=== PATIENT | female | born 1960 | race Caucasian/White ===

== ENCOUNTER 2020-08-20 09:09 | Inpatient (IN) | payer MEDICARE, OTHER ==
[~2020-08-20] VITALS: Ht 162.6 cm; Wt 104.3 kg
[~2020-08-20 09:09] MED LIST: ALPR2TAB7 PO; ASPI-1420 PO; ATEN25TA PO; ATOR20TA PO; DILT-32 PO; ESCI10TA PO; LEVO75TA7 PO; LOPE2TAB25 PO; MONT10TA22 PO; MULT-594 PO; PANT40TA49 PO; PREG75CA PO; RISP2TAB85 PO; TEMA30CA PO; TIOT18CA3 IH; TOPI25TA49 PO; VALA100026 PO
--- NOTE | 2020-08-20 09:22 | NUR ---
AMISHJacinto [id number] From [facility] Escorted by [employer] Officer Hector [id number] Self inflicted wrist laceration/SI/agitation, states "I'm scared, I feel like I'm going to hell". to ER bed 10, hooked to monitor, noted , changed to hosp gown, warm blanket provided, patient aao X 3. awaiting MD shoemaker
--- NOTE | 2020-08-20 09:23 | NUR ---
Dr Keane at bedside
[2020-08-20] MEDS ORDERED: OLANZAPINE 10 MG VIAL IM ONE ×2 (09:30→09:34)
[2020-08-20 09:56] LABS: BASOPHILS # (AUTO) 0.1 /CMM (0.0-0.2); BASOPHILS % (AUTO) 0.5 % (0.0-2.0); EOSINOPHILS % (AUTO) 1.2 % (0.0-6.0); HEMATOCRIT 40 % (33-45); HEMOGLOBIN 13.1 g/dL (11.5-14.8); LYMPHOCYTES # (AUTO) 1.3 /CMM (0.8-4.8); LYMPHOCYTES % (AUTO) 11.9 % (20.0-44.0); MEAN CORPUSCULAR HGB CONC 33 g/dl (31.0-36.0); MEAN CORPUSCULAR VOLUME 84 fL (82-100); MONOCYTES # (AUTO) 0.5 /CMM (0.1-1.30); MONOCYTES % (AUTO) 5.2 % (2.0-12.0); NEUTROPHILS # (AUTO) 8.5 /CMM (1.8-8.9); NEUTROPHILS % (AUTO) 81.2 % (43.0-81.0); PLATELET COUNT (AUTO) 345 /CMM (150-450); RED BLOOD CELL COUNT(AUTO) 4.72 MIL/uL (4.0-5.2); WHITE BLOOD COUNT (AUTO) 10.5 K/uL (4.3-11.0)
[2020-08-20 10:10] LABS: CALCIUM, SERUM 9.5 mg/dL (8.5-10.1); CARBON DIOXIDE 24 mmol/L (21-32); CHLORIDE 106 mmol/L (98-107); CREATININE 1.4 mg/dL (0.6-1.3); GLUCOSE 186 mg/dL (74-106); SODIUM SERUM 143 mmol/L (136-145); UREA NITROGEN, BLOOD 13 mg/dL (7-18)
[2020-08-20 10:20] LABS: ACETAMINOPHEN 0 ug/ml (10-30); ALANINE AMINOTRANSFERASE 42 U/L (12-78); ALBUMIN 3.6 g/dL (3.4-5.0); ALCOHOL, BLOOD < 3 mg/dL (0-0); ALKALINE PHOSPHATASE 123 U/L (46-116); ASPARTATE AMINOTRANSFERASE 18 U/L (15-37); BILIRUBIN,DIRECT 0.1 mg/dL (0.0-0.2); BILIRUBIN,TOTAL 0.3 mg/dL (0.2-1.0); TOTAL PROTEIN, SERUM 7.6 g/dL (6.4-8.2)
--- NOTE | 2020-08-20 10:37 | NUR ---
urine sample collected via straight catheter, sent sample to lab
--- NOTE | 2020-08-20 10:43 | NUR ---
CALLED ART MORTGAGE LOAN COORDINATOR FOR PSYCH EVAL.
[2020-08-20] MEDS ORDERED: METO25TA3 PO (10:48)
[2020-08-20] MEDS ORDERED: METF-440 PO (10:48)
[2020-08-20] MEDS ORDERED: IBUP-1955 PO (10:48)
[2020-08-20] MEDS ORDERED: ACET1TAB23 PO (10:48)
[2020-08-20] MEDS ORDERED: RISP0.2515 PO (10:48)
[2020-08-20] MEDS ORDERED: DOXE25CA3 PO (10:48)
[2020-08-20] MEDS ORDERED: FLUT16SP (10:48)
[2020-08-20] MEDS ORDERED: QUET200T PO (10:48)
[2020-08-20] MEDS ORDERED: GABA-532 PO (10:48)
[2020-08-20] MEDS ORDERED: BENZ2TAB7 PO (10:48)
[2020-08-20] MEDS ORDERED: DIPH1TAB PO (10:48)
[2020-08-20 10:54] LABS: BILIRUBIN,URINE Negative (NEGATIVE); COLOR,URINE YELLOW (YELLOW); LEUKOCYTE ESTERASE ,URINE Negative (NEGATIVE); NITRITE, URINE Negative (NEGATIVE); PROTEIN,URINE Negative (NEGATIVE); UGLUCOSE Negative (NEGATIVE); UROBILINOGEN,URINE 0.2 EU/dL (0.2)
--- NOTE | 2020-08-20 11:00 | NUR ---
RECEIVED RESULT FROM MAIN LAB: RAPID COVID NEGATIVE
[2020-08-20] MEDS ORDERED: LORAZEPAM INJ 2 MG/ML VIAL ONE (11:15)
[2020-08-20] MEDS ORDERED: LORAZEPAM INJ 2 MG/ML VIAL IV ONE (11:30)
[2020-08-20] MEDS ORDERED: IV NS 0.9% 1,000 ML BAG IV ONE (11:30)
--- NOTE | 2020-08-20 11:50 | NUR ---
Social Service Consult: SW consult request by ER staff for a 60 year old female. SW met with pt at ER bed 10 at 1120 am to do an assessment. Per RN (Elijah) pt is medicated by MD Garcia) and she is interviewable Pt is alert and oriented x 4 ( time, place, self, and situation). Pt appears to be in an anxious mood and distress affect. Pt.'s speech is within normal limits. Pt is seeking help because she is having suicidal ideation. Pt expresses of having a plan to drink a bottle of Benadryl to overdose. Pt states when she has anxiety she also feels like jumping out of a building window. The trigger for the pt is because the pt's two friends are currently not on speaking terms. Pt denies having homicidal ideation. Pt. is ungroomed and has proper attire (medical gown). Pt has hx of psychiatric hospitalization and psychotropic medication. Pt did not explain further with hospitalization or current medications. Pt states she currently stays at [facility] ([address] [place] [address], ) before ED admission. Pt also state she does have a support system, mother (Margoth Hodges [phone]). Pt ambulates with steady gait and has no DME. Pt express she is currently unemployed but receives disability benefits month. She did specify the amount she receives for assistance. SW offers pt for psychiatric hospitalization. Pt verbally agrees to voluntarily be in psychiatric unit. Plan: Crisis team will be evaluating the pt for psychiatric hospitalization at [facility]).
--- NOTE | 2020-08-20 12:47 | NUR ---
[facility] 213-1
--- NOTE | 2020-08-20 12:52 | NUR ---
REPORT GIVEN TO MANISH ABRAHAM OF [facility]
--- NOTE | 2020-08-20 13:20 | NUR ---
TOOL MAKER BENCH NOTE- 60 Y/O FEMALE BROUGHT INTO UNIT FROM ER. ON FACE TO FACE ASSESSMENT, PT IS ALERT ORIENTED TO PERSON PLACE TIME PURPOSE. A BIT PARANOID, FLAT AFFECT, DEPRESSED POOR EYE CONTACT MINIMAL INTERACTION NOTED. PT STATES "I CUT MY WRIST" PT DENIES SI HI AH VH AT PRESENT. STATED "IM DONE WITH THAT" SHE IS 64 INCHES TALL AND 230 POUNDS. PT HAS MEDICAL HX OF HYPERTENSION, GERD, HYPOTHYROIDISM, ASTHMA COPD, BIPOLAR AND DEPRESSION. SHES ALLERGIC TO LAMICTAL AND BETADINE, PLASTIC TAPE WELL. PT MRSA SWAB COMPLETED, ACCU CHECK BS- 158. VS- B/P- 115/66, HR- 88, RR- 20, TEMP- 98.4, SATS 93% RA . PT REFUSES PNEUMONIA AND FLU VACCINES "DUE TO MY BREATHING ISSUES (COPD/ASTHMA). PT WAS COMBATIVE IN ER AND WAS PLACED IN RESTRAINTS AND GIVEN ZYPREXA 5 MG IM. PT CALM DIRECTABLE HERE. LT WRIST W 19CM LONG ABRASION FROM RAZOR SCRAPE. NO DRAINAGE AT PRESENT. PHOTOS TAKEN AND REDRESSED. LLE W ABRASION 0.5 X 2.O CM ND RLE ABRASION 7 X 1.5 CM . PHOTOS TAKEN FOR CHART. DR CORTEZ NOTIFIED AND ORDERS RECEIVED. CYDNEY MELVIN NOTIFIED OF ADMIT WELL. PT RIGHTS PAMPHLET AND UNIT ORIENTATION COMPLETED Addendum: 08/20/20 at 1453 by MANISH AGUDELO RN PT SPOKE TO THIS RN AND STATED THAT SHE WAS THINKING SHE HAS HAD FLU VACC "THIS PAST YEAR" AND PNA VACC "SOME TIME AGO..." BUT ALSO STATED SHES NEVER BEEN TREATED FOR COPD ISSUES OR ASTHMA
[2020-08-20] MEDS ORDERED: MAGNESIUM HYDROXIDE 30 ML UDC PO PRN (13:30)
[2020-08-20] MEDS ORDERED: MAG HYDROX/AL HYDROX/SIMETH 30 ML UDC PO PRN (13:30)
[2020-08-20] MEDS ORDERED: BLOOD SUGAR DIAGNOSTIC 1 EACH STRIP IN ONE (13:30)
[2020-08-20] MEDS: METOPROLOL SUCCINATE 25 MG TAB.SR.24H PO SCH ×2 (14:56→20:00)
[2020-08-20] MEDS: LEVOTHYROXINE SODIUM 75 MCG TABLET PO SCH (14:56)
[2020-08-20 16:03] VITALS: BP 112/86
[2020-08-20] MEDS: LORAZEPAM 0.5 MG TABLET PO PRN (16:37)
--- NOTE | 2020-08-20 16:37 | NUR ---
RN NOTE- PT W ANXIETY . ATIVAN 0.5 MG GIVEN
[2020-08-20] MEDS: METFORMIN 500 MG TABLET PO SCH (17:04)
[2020-08-20] MEDS: FLUTICASONE PROPIONATE 16 GM BOTTLE NS SCH (17:04)
--- NOTE | 2020-08-20 19:30 | NUR ---
[facility] RN NOTE, RECEIVED PATIENT AWAKE AND IN ROOM, NO S/S OR COMPLAINTS OF PAIN AT THIS TIME. PATIENT IS DISPLAYING NO S/S OF APPARENT DISTRESS AT THIS TIME. PATIENT BREATHING IS UNLABORED WITH EQUAL RISE AND FALL OF THE CHEST. PATIENT IS ALERT AND ORIENTED X 2-3 ON ROOM AIR WITH A SPO2 96%. PATIENT IS COMPLIANT WITH MEDICATIONS, HYPERVERBAL AT TIMES, ANXIOUS, DEMANDING, NEEDS LOTS OF REDIRECTION, AND COOPERATIVE. PATIENT DENIES SUICIDAL AND HOMICIDAL IDEATIONS AT THIS TIME. PATIENT ASSISTED WITH TURNING AND REPOSITIONING Q2HR AND PRN FOR COMFORT AND CIRCULATION. PATIENT HAS NO NEEDS AT THIS TIME. PATIENT EDUCATED ON THE USE OF THE CALL NAVA. WILL CONTINUE TO MONITOR THIS PATIENT Q15 MINUTES WITH THE HELP OF STAFF TO MAINTAIN SAFETY.
[2020-08-20 19:44] VITALS: BP 120/84
[2020-08-20] MEDS: ATORVASTATIN 10 MG TABLET PO SCH (21:22)
[2020-08-20] MEDS: TEMAZEPAM 7.5 MG CAPSULE PO PRN (21:22)
--- NOTE | 2020-08-20 21:22 | NUR ---
[facility] RN NOTE, PATIENT HAS A COMPLAINT OF NOT BEING ABLE TO SLEEP AND IS REQUESTING RESTORIL AT THIS TIME. PATIENT VITAL SIGNS ARE STABLE. GAVE RESTORIL 7.5MG PO HS PRN ORDERED. WILL REASSESS FOR INSOMNIA AND I WILL CONTINUE TO MONITOR THIS PATIENT.
[2020-08-21] MEDS: ACETAMINOPHEN 325 MG TABLET PO PRN (05:17)
[2020-08-21] MEDS: LEVOTHYROXINE SODIUM 75 MCG TABLET PO SCH (07:59)
[2020-08-21] MEDS: PANTOPRAZOLE 40 MG TABLET.DR PO SCH (07:59)
[2020-08-21 08:00] VITALS: BP 123/75
[2020-08-21 08:07] LABS: CHOLESTEROL 163 mg/dL (<200); HDL CHOLESTEROL 41 mg/dL (40-60); LDL 108 mg/dL (0-99); TRIGLYCERIDES 146 mg/dL (30-150)
[2020-08-21] MEDS: METFORMIN 500 MG TABLET PO SCH ×2 (08:59→16:41)
[2020-08-21] MEDS: FLUTICASONE PROPIONATE 16 GM BOTTLE NS SCH ×2 (08:59→16:41)
[2020-08-21] MEDS: METOPROLOL SUCCINATE 25 MG TAB.SR.24H PO SCH ×2 (08:59→16:42)
--- NOTE | 2020-08-21 09:00 | NUR ---
RN NOTE- PT ALERT ORIENTED VISIBLE ON UNIT DENIES SI HI AH VH DEPRESSED FLAT AFFECT MED COMPLIANT
[2020-08-21 12:23] LABS: ALBUMIN 3.5 g/dL (3.4-5.0); BILIRUBIN,TOTAL 0.3 mg/dL (0.2-1.0); CALCIUM, SERUM 9.1 mg/dL (8.5-10.1); CREATININE 1.3 mg/dL (0.6-1.3); POTASSIUM 4.2 mmol/L (3.5-5.1); TOTAL PROTEIN, SERUM 7.3 g/dL (6.4-8.2)
[2020-08-21] MEDS: LORAZEPAM 0.5 MG TABLET PO PRN (12:30)
--- NOTE | 2020-08-21 12:30 | NUR ---
RN NOTE- C/O ANXIETY. ATIVAN 0.5 MG GIVEN
--- NOTE | 2020-08-21 13:50 | NUR ---
RN NOTE- PT ANXIETY DIMINISHED. ATIVAN EFFECTIVE
[2020-08-21 16:00] VITALS: BP 101/68
[2020-08-21] MEDS ORDERED: risperiDONE 1 MG TABLET PO PRN (17:30)
[2020-08-21] MEDS: risperiDONE 1 MG TABLET PO SCH (18:31)
[2020-08-21 20:49] VITALS: BP 155/96
[2020-08-21] MEDS: ATORVASTATIN 10 MG TABLET PO SCH (21:08)
[2020-08-21] MEDS: TEMAZEPAM 7.5 MG CAPSULE PO PRN (21:08)
[2020-08-22] MEDS: LORAZEPAM 0.5 MG TABLET PO PRN ×4 (00:58→15:05)
--- NOTE | 2020-08-22 00:58 | NUR ---
[facility] NOTE, PATIENT HAS A A COMPLAINT OF FEELING ANXIOUS AND IS REQUESTING ATIVAN AT TIME. PATIENT VITAL SIGNS ARE STABLE. GAVE ATIVAN 0.5MG PO Q6HR PRN ORDERED. WILL REASSESS ANXIETY AND I WILL CONTINUE TO MONITOR THIS PATIENT.
[2020-08-22] MEDS: ACETAMINOPHEN 325 MG TABLET PO PRN (06:26)
[2020-08-22] MEDS: LEVOTHYROXINE SODIUM 75 MCG TABLET PO SCH (07:51)
[2020-08-22] MEDS: PANTOPRAZOLE 40 MG TABLET.DR PO SCH (07:51)
--- NOTE | 2020-08-22 07:52 | NUR ---
RN-CO: ATIVAN MG PO GIVEN FOR SEVERE ANXIETY.
[2020-08-22 08:00] VITALS: BP 141/75
[2020-08-22] MEDS: METOPROLOL SUCCINATE 25 MG TAB.SR.24H PO SCH ×2 (08:01→16:43)
[2020-08-22] MEDS: risperiDONE 1 MG TABLET PO SCH ×2 (08:01→16:14)
[2020-08-22] MEDS: METFORMIN 500 MG TABLET PO SCH ×2 (08:02→16:14)
[2020-08-22] MEDS: FLUTICASONE PROPIONATE 16 GM BOTTLE NS SCH ×2 (08:05→16:14)
--- NOTE | 2020-08-22 09:25 | NUR ---
RN-CO: ATIVAN PO IS INEFFECTIVE. PATIENT WAS RUNNING AROUND, CRYING , SCREAMING, NON REDIRECTABLE. WE TRIED TO SIT HER IN MOOKIE CHAIR BUT STILL EXTREMELY RESTLESS AND ANXIOUS. CALLED DR CORTEZ. PT IS SCREAMING " MY DREAM WAS BAD!" " GIVE ME A SHOT!" "I CANNOT CALM DOWN!"
--- NOTE | 2020-08-22 09:51 | NUR ---
RN-CO: DR CORTEZ INCREASED THE ZYPREXA TO 10 MG IM .
[2020-08-22] MEDS ORDERED: OLANZAPINE 10 MG VIAL IM ONE ×2 (10:00)
--- NOTE | 2020-08-22 10:04 | NUR ---
RN-CO: DR CORTEZ SEEN AND EXAMINED PATIENT WITH ORDER TO GIVEN ZYPREXA 10 MG IM X1 PER PATIENT REQUEST. NOTED AND CARRIED OUT. PATIENT STATED GIVEN ME A SHOT " I AM SCARED I WILL HIT SOMEBODY."
--- NOTE | 2020-08-22 15:03 | NUR ---
rn-co: ativan 0.5 mgg 1 tab ,pt dropped it on the floor and was wasted by another RN. Ativan 0.5 mg PO pulled out again was given to pt due to anxiety.
[2020-08-22 16:00] VITALS: BP 134/90
[2020-08-22] MEDS ORDERED: HALOPERIDOL LACTATE INJ 5 MG/ML VIAL IM STA (17:03)
[2020-08-22] MEDS ORDERED: LORAZEPAM INJ 2 MG/ML VIAL IM STA (17:03)
--- NOTE | 2020-08-22 17:04 | NUR ---
RN-CO: PATIENT NOTED, BANGING HER HEAD ON THE GLASS WINDOW, SHE SAID SHE IS SEVERELY ANXIOUS. I GAVE HER ATIVAN PO 2 HOURS AGO BUT INEFFECTIVE. SHE SAID SHE CANNOT HELP IT AND SHE DEMANDED FOR AN IM SHOT. NOTIFIED DR CORTEZ AND ORDERED ATIVAN 2MG IM AND HALDOL 5 MG IM STAT, NOTED.
[2020-08-22] MEDS ORDERED: LORAZEPAM 0.5 MG TABLET PO PRN (17:30)
[2020-08-22 20:00] VITALS: BP 115/71
[2020-08-22] MEDS: ATORVASTATIN 10 MG TABLET PO SCH (21:12)
[2020-08-22] MEDS: TEMAZEPAM 7.5 MG CAPSULE PO PRN (21:12)
--- NOTE | 2020-08-22 21:14 | NUR ---
RN notes Pt is having trouble sleeping and requesting restoril. Administered restoril 7.5 mg/1 tab/po/prn as ordered for insomnia. Safety precautions is maintained. Will continue to monitor.
[2020-08-23] MEDS: PANTOPRAZOLE 40 MG TABLET.DR PO SCH (07:52)
[2020-08-23] MEDS: LEVOTHYROXINE SODIUM 75 MCG TABLET PO SCH (07:52)
[2020-08-23] MEDS: LORAZEPAM 1 MG TABLET PO PRN ×3 (07:56→20:32)
--- NOTE | 2020-08-23 07:56 | NUR ---
RN NOTE- ANXIOUS RESTLESS . ATIVAN 1 MG GIVEN
[2020-08-23 08:00] VITALS: BP 132/82
--- NOTE | 2020-08-23 09:00 | NUR ---
RN NOTE- PT CALMER ATIVAN EFFECTIVELY DECREASING SX, PO INTAKE GOOD MED COMPLIANT NO BEHAVIORAL ISSUES THUS FAR
[2020-08-23] MEDS: METFORMIN 500 MG TABLET PO SCH ×2 (09:08→16:53)
[2020-08-23] MEDS: METOPROLOL SUCCINATE 25 MG TAB.SR.24H PO SCH ×2 (09:08→16:54)
[2020-08-23] MEDS: risperiDONE 1 MG TABLET PO SCH ×2 (09:09→16:54)
[2020-08-23] MEDS: FLUTICASONE PROPIONATE 16 GM BOTTLE NS SCH ×2 (09:09→17:12)
[2020-08-23] MEDS ORDERED: risperiDONE 1 MG TABLET PO SCH (13:00)
--- NOTE | 2020-08-23 13:49 | NUR ---
Family Contact: SW called the pts mother, Margoth ([phone]), and informed her of the pts initial discharge plan and stated that the SW will keep her involved in the treatment.
--- NOTE | 2020-08-23 14:23 | NUR ---
RN NOTE- ANXIETY STATED. ATIVAN 1 MG GIVEN
--- NOTE | 2020-08-23 14:30 | NUR ---
Facility Contact: EBONI called [facility] ([phone]) and spoke to Kayla, pricing coordinator, who stated that the pts new 602 form and notes that will be sent over at the time of discharge will determine if the pt can return but stated that if the pt is stable the pt should be able to return.
--- NOTE | 2020-08-23 14:56 | NUR ---
Initial Discharge Plan: Pt currently resides at [facility] located at [address] [place] [address]; . Per bed placement coordinator Kayla ([phone]), the pts new information and notes that will be sent over for discharge will determine if the pt can return. SW will work with the pt and the pts MD regarding appropriate discharge planning. SW will form a safe and proper discharge.
[2020-08-23 16:00] VITALS: BP 130/80
[2020-08-23] MEDS: BENZTROPINE MESYLATE (1 MG) 1 MG TABLET PO SCH (16:53)
[2020-08-23 19:03] LABS: ALBUMIN 3.6 g/dL (3.4-5.0); BILIRUBIN,TOTAL 0.3 mg/dL (0.2-1.0); CALCIUM, SERUM 9.1 mg/dL (8.5-10.1); CREATININE 1.1 mg/dL (0.6-1.3); POTASSIUM 3.8 mmol/L (3.5-5.1); TOTAL PROTEIN, SERUM 7.3 g/dL (6.4-8.2)
[2020-08-23 19:35] LABS: BASOPHILS # (AUTO) 0.1 /CMM (0.0-0.2); BASOPHILS % (AUTO) 0.5 % (0.0-2.0); EOSINOPHILS % (AUTO) 1.9 % (0.0-6.0); HEMATOCRIT 38 % (33-45); HEMOGLOBIN 12.5 g/dL (11.5-14.8); LYMPHOCYTES # (AUTO) 2.4 /CMM (0.8-4.8); LYMPHOCYTES % (AUTO) 22.4 % (20.0-44.0); MEAN CORPUSCULAR HGB CONC 33 g/dl (31.0-36.0); MEAN CORPUSCULAR VOLUME 85 fL (82-100); MONOCYTES # (AUTO) 0.6 /CMM (0.1-1.30); MONOCYTES % (AUTO) 5.7 % (2.0-12.0); NEUTROPHILS # (AUTO) 7.5 /CMM (1.8-8.9); NEUTROPHILS % (AUTO) 69.5 % (43.0-81.0); PLATELET COUNT (AUTO) 371 /CMM (150-450); WHITE BLOOD COUNT (AUTO) 10.8 K/uL (4.3-11.0)
[2020-08-23 20:00] VITALS: BP 109/63
--- NOTE | 2020-08-23 20:33 | NUR ---
RN NOTES : ANXIETY PT. C/O FEELING ANXIOUS PARANOID, HYPERVERVAL, PACING IN HALLWAY ATIVAN 1 MG PO PRN GIVEN PER PT. REQUEST , WILL CONTINUE TO MONITOR.
[2020-08-23] MEDS: ATORVASTATIN 10 MG TABLET PO SCH (21:06)
[2020-08-23] MEDS: TEMAZEPAM 7.5 MG CAPSULE PO PRN (22:35)
--- NOTE | 2020-08-23 22:36 | NUR ---
RN NOTES: INSOMNIA PT. C/O UNABLE TO SLEEP RESTORIL 7.5 MG PO PRN GIVEN PER PT. REQUEST , WILL CONTINUE TO MONITOR.
--- NOTE | 2020-08-24 06:25 | NUR ---
RN NOTES: PATIENT RESTING IN ROOM. NO S/S OF DISTRESS. NO BEHAVIOR PROBLEMS NOTED AND NO CHANGE OF CONDITION NOTED, SAFETY PRECAUTION MAINTAINED, ALL PATIENT CARE NEEDS MET AT THIS TIME. WILL CONTINUE TO MONITOR PATIENT FOR MOOD, BEHAVIOR AND SAFETY AND ENDORSE TO AM SHIFT FOR CONTINUITY CARE.
[2020-08-24] MEDS: LEVOTHYROXINE SODIUM 75 MCG TABLET PO SCH (07:29)
[2020-08-24] MEDS: PANTOPRAZOLE 40 MG TABLET.DR PO SCH (07:29)
[2020-08-24] MEDS: LORAZEPAM 1 MG TABLET PO PRN ×2 (07:29→17:27)
--- NOTE | 2020-08-24 07:30 | NUR ---
RN NOTE- ANXIETY "IM NOT SLEEPING" NOC SHIFT RN REPORTS 7+ HRS SLEEP. ATIVAN 1 MG GIVEN. WILL DISCUSS W DR CORTEZ
[2020-08-24 08:00] VITALS: BP 131/75
[2020-08-24] MEDS: BENZTROPINE MESYLATE (1 MG) 1 MG TABLET PO SCH ×3 (08:55→17:06)
[2020-08-24] MEDS: METOPROLOL SUCCINATE 25 MG TAB.SR.24H PO SCH ×2 (08:55→17:06)
[2020-08-24] MEDS: METFORMIN 500 MG TABLET PO SCH ×2 (08:55→17:06)
[2020-08-24] MEDS: risperiDONE 1 MG TABLET PO SCH ×3 (08:55→17:06)
[2020-08-24] MEDS: FLUTICASONE PROPIONATE 16 GM BOTTLE NS SCH ×2 (08:58→17:07)
--- NOTE | 2020-08-24 09:00 | NUR ---
RN NOTE- RN NOTE-PT STATES ANXIETY AND FEELS LIKE HURTING SELF. DR CORTEZ INFORMED. MONITORING. ALL STAFF INFORMED. NO UTENSILS AT MEALS. LINE OF SIGHT. PO INTAKE GOOD MED COMPLIANT NO BEHAVIORAL ISSUES THUS FAR
--- NOTE | 2020-08-24 09:58 | NUR ---
WOUND CARE CONSULT: PT PRESENTS WITH LEFT ARM ABRASION, PRESENT ON ADMISSION. SOME DRY ABRASIONS ALSO NOTED TO LEGS AND LEFT WRIST AREA, PRESENT ON ADMISSION. RECOMMENDATIONS MADE FOR SKIN PROTECTION AND WOUND CARE. DISCUSSED WITH NURSING STAFF. IN AGREEMENT WITH PLAN OF CARE. Addendum: 08/24/20 at 0959 by MAXWELL CARROLL WNDNU Amended: Links added.
[2020-08-24 16:00] VITALS: BP 134/76
--- NOTE | 2020-08-24 17:35 | NUR ---
RN NOTE- ANXIETY STATED. ATIVAN 1 MG GIVEN
[2020-08-24 20:18] VITALS: BP 107/67
[2020-08-24] MEDS: ACETAMINOPHEN 325 MG TABLET PO PRN (20:39)
[2020-08-24] MEDS: TEMAZEPAM 7.5 MG CAPSULE PO PRN (22:04)
[2020-08-24] MEDS: ATORVASTATIN 10 MG TABLET PO SCH (22:04)
[2020-08-25] MEDS: LORAZEPAM 1 MG TABLET PO PRN ×4 (00:35→22:33)
--- NOTE | 2020-08-25 00:36 | NUR ---
RN NOTES: ANXIETY PT. C/O FEELING ANXIOUS PARANOID, HYPERVERVAL, PACING IN HALLWAY ATIVAN 1 MG PO PRN GIVEN PER PT. REQUEST , WILL CONTINUE TO MONITOR.
--- NOTE | 2020-08-25 06:35 | NUR ---
RN NOTES: PATIENT RESTING IN ROOM. NO S/S OF DISTRESS. NO CHANGE OF CONDITION NOTED, SAFETY PRECAUTION MAINTAINED, ALL PATIENT CARE NEEDS MET AT THIS TIME. WILL CONTINUE TO MONITOR PATIENT FOR MOOD, BEHAVIOR AND SAFETY AND ENDORSE TO AM SHIFT FOR CONTINUITY CARE.
--- NOTE | 2020-08-25 06:56 | NUR ---
RN NOTES: PT. GIVE PERMISSION TO DRAW LABS, AFTER LABS DRAW PT. BEHAVIOUR VERY ANXIOUS , SLAMED DOORS PARANOID, YELLING SCREAMING , ATIVAN PO PRN OFFERED PT . REFUSED TO TAKE , REDIRECT PT. REALITY OREITION PROVIDE, WILL CONTINUE WITH CARE .
[2020-08-25 08:00] VITALS: BP 151/90
[2020-08-25] MEDS: risperiDONE 1 MG TABLET PO SCH ×3 (08:46→16:47)
[2020-08-25] MEDS: LEVOTHYROXINE SODIUM 75 MCG TABLET PO SCH (08:47)
[2020-08-25] MEDS: BENZTROPINE MESYLATE (1 MG) 1 MG TABLET PO SCH ×3 (08:47→16:47)
[2020-08-25] MEDS: METOPROLOL SUCCINATE 25 MG TAB.SR.24H PO SCH ×2 (08:48→16:49)
[2020-08-25] MEDS: METFORMIN 500 MG TABLET PO SCH ×2 (08:49→16:47)
[2020-08-25] MEDS: PANTOPRAZOLE 40 MG TABLET.DR PO SCH (08:50)
[2020-08-25] MEDS: FLUTICASONE PROPIONATE 16 GM BOTTLE NS SCH ×2 (08:52→16:47)
--- NOTE | 2020-08-25 09:59 | NUR ---
given ativan for nervousness.
--- NOTE | 2020-08-25 10:43 | NUR ---
SNF Referral: EBONI faxed a referral to [facility] with attn to Keyana to the fax number: [phone].
[2020-08-25] MEDS: GABAPENTIN 100 MG CAPSULE PO SCH ×2 (13:26→16:47)
[2020-08-25 16:00] VITALS: BP 114/64
--- NOTE | 2020-08-25 16:21 | NUR ---
GIVEN ATIVAN FOR NERVOUSNESS.
--- NOTE | 2020-08-25 18:07 | NUR ---
PT. VERBALIZED TO ON AIR TALENT AND ROOMATE THAT SHE DID NOT FEEL SAFE BEING AROUND PEOPLE-TAKEN TO OBSERVATION RM.
[2020-08-25 19:52] VITALS: BP 111/84
[2020-08-25] MEDS: TEMAZEPAM 7.5 MG CAPSULE PO PRN (21:13)
[2020-08-25] MEDS: ATORVASTATIN 10 MG TABLET PO SCH (21:13)
--- NOTE | 2020-08-26 07:30 | NUR ---
RN OPEN NOTES PATIENT IN HER ROOM AWAKE. NO DISTRESS OR AGITATION NOTED. NEEDY AT TIMES. REDIRECTED. NO C/O PAIN OR DISCOMFORT. COMPLIANT WITH MEDICATION. SAFETY ENVIRONMENT OBSERVED AT ALL TIMES. WILL CONTINUE TO MONITOR Q 15 MIN FOR SAFETY AND BEHAVIOR.
[2020-08-26 08:00] VITALS: BP 115/68
[2020-08-26] MEDS: GABAPENTIN 100 MG CAPSULE PO SCH ×3 (08:26→16:50)
[2020-08-26] MEDS: PANTOPRAZOLE 40 MG TABLET.DR PO SCH (08:26)
[2020-08-26] MEDS: METFORMIN 500 MG TABLET PO SCH ×2 (08:26→16:51)
[2020-08-26] MEDS: LEVOTHYROXINE SODIUM 75 MCG TABLET PO SCH (08:26)
[2020-08-26] MEDS: risperiDONE 1 MG TABLET PO SCH ×3 (08:26→16:50)
[2020-08-26] MEDS: METOPROLOL SUCCINATE 25 MG TAB.SR.24H PO SCH ×2 (08:27→16:51)
[2020-08-26] MEDS: BENZTROPINE MESYLATE (1 MG) 1 MG TABLET PO SCH ×3 (08:28→16:50)
[2020-08-26] MEDS: FLUTICASONE PROPIONATE 16 GM BOTTLE NS SCH ×2 (09:14→16:54)
[2020-08-26] MEDS ORDERED: GABAPENTIN 100 MG CAPSULE PO ONE (13:30)
[2020-08-26 16:00] VITALS: BP 120/73
[2020-08-26] MEDS: LORAZEPAM 1 MG TABLET PO PRN (19:40)
--- NOTE | 2020-08-26 19:41 | NUR ---
RN NOTES: ANXIETY PT. C/O FEELING ANXIOUS PARANOID, ATIVAN1 MG PO PRN GIVEN PER PT. REQUEST , WILL CONTINUE TO MONITOR.
[2020-08-26 20:23] VITALS: BP 126/64
[2020-08-26] MEDS: ATORVASTATIN 10 MG TABLET PO SCH (21:05)
[2020-08-26] MEDS: TEMAZEPAM 7.5 MG CAPSULE PO PRN (22:44)
[2020-08-27 08:00] VITALS: BP 129/78
[2020-08-27] MEDS: GABAPENTIN 100 MG CAPSULE PO SCH ×4 (08:28→16:35)
[2020-08-27] MEDS: METFORMIN 500 MG TABLET PO SCH ×2 (08:28→16:36)
[2020-08-27] MEDS: LEVOTHYROXINE SODIUM 75 MCG TABLET PO SCH (08:28)
[2020-08-27] MEDS: METOPROLOL SUCCINATE 25 MG TAB.SR.24H PO SCH ×2 (08:29→16:37)
[2020-08-27] MEDS: BENZTROPINE MESYLATE (1 MG) 1 MG TABLET PO SCH ×3 (08:29→16:37)
[2020-08-27] MEDS: PANTOPRAZOLE 40 MG TABLET.DR PO SCH (08:29)
[2020-08-27] MEDS: risperiDONE 1 MG TABLET PO SCH ×3 (08:29→16:36)
[2020-08-27] MEDS: FLUTICASONE PROPIONATE 16 GM BOTTLE NS SCH ×2 (08:34→16:38)
[2020-08-27 16:00] VITALS: BP 131/68
[2020-08-27 20:16] VITALS: BP 104/76
[2020-08-27] MEDS: ATORVASTATIN 10 MG TABLET PO SCH (21:37)
[2020-08-27] MEDS: TEMAZEPAM 7.5 MG CAPSULE PO PRN (21:38)
--- NOTE | 2020-08-28 06:43 | NUR ---
RN NOTES PT IN BED AWAKE. NO CHANGES IN CONDITION NOTED, NO SUICIDAL ATTEMPTS NOTED, PT DENIES ANY IDEATION. NO RESP DISTRESS NOTED. ON FREQUENT VISUAL CHECK FOR BEHAVIOR AND SAFETY, ALL NEEDS ATTENDED. ALL SAFETY PRECAUTIONS MAINTAINED. WILL ENDORSE TO NEXT SHIFT NURSE FOR REEMA.
[2020-08-28] MEDS: PANTOPRAZOLE 40 MG TABLET.DR PO SCH (07:49)
[2020-08-28] MEDS: LEVOTHYROXINE SODIUM 75 MCG TABLET PO SCH (07:49)
[2020-08-28] MEDS: LORAZEPAM 1 MG TABLET PO PRN ×2 (07:49→14:29)
--- NOTE | 2020-08-28 07:49 | NUR ---
GIVEN ATIVAN FOR NERVOUSNESS.
[2020-08-28 08:00] VITALS: BP 153/100
[2020-08-28] MEDS: GABAPENTIN 100 MG CAPSULE PO SCH ×3 (08:30→17:31)
--- NOTE | 2020-08-28 08:30 | NUR ---
GIVEN AM MEDS.
[2020-08-28] MEDS: METFORMIN 500 MG TABLET PO SCH ×2 (08:31→17:31)
[2020-08-28] MEDS: METOPROLOL SUCCINATE 25 MG TAB.SR.24H PO SCH ×2 (08:31→17:32)
[2020-08-28] MEDS: BENZTROPINE MESYLATE (1 MG) 1 MG TABLET PO SCH ×3 (08:31→17:31)
[2020-08-28] MEDS: risperiDONE 1 MG TABLET PO SCH ×3 (08:31→17:33)
[2020-08-28] MEDS: FLUTICASONE PROPIONATE 16 GM BOTTLE NS SCH ×2 (08:34→17:31)
--- NOTE | 2020-08-28 08:47 | NUR ---
RN-CO: PATIENT IS EXTREMELY PSYCHOTIC AND ANXIOUS, SHE IS RUNNING AROUND IN THE HALLWAY. SHE TRIED TO CHOKE THE RN DOCUMENTATION, SHE WAS DEMANDING OF IM SHOT BEC SHE SAID SHE IS SCARED TO HURT ANYBODY. ATIVAN O.5 MG WAS INEFFECTIVE. SHE ASKED US TO TAKE HER TO SECLUSION ROOM AND LOOKS VERY ANXIOUS. PAGED DR CRAFT. 2 STAFF WAS WITH HER AT THIS TIME. AWAITING FOR DR CRAFT TO CALL BACK.
--- NOTE | 2020-08-28 08:51 | NUR ---
RN-CO: PATIENT IS SCREAMING " GOD HELP ME!" " GOD HELP ME!"
[2020-08-28] MEDS ORDERED: OLANZAPINE 10 MG VIAL IM STA (08:58)
--- NOTE | 2020-08-28 09:02 | NUR ---
RN-CO: DR CRAFT CALLED BACK AND ORDERED ZYPREXA 10 MG IM STAT.NOTED AND CARRIED OUT
--- NOTE | 2020-08-28 10:20 | NUR ---
ZYPREXA VERY EFFECTIVE AND PT. NOW APOLOGIZING FOR BEHAVIOR.
--- NOTE | 2020-08-28 13:53 | NUR ---
1300 meds not given as pt. very drowsy.
--- NOTE | 2020-08-28 14:37 | NUR ---
given ativan for agitation.
[2020-08-28 16:00] VITALS: BP 125/80
[2020-08-28 20:38] VITALS: BP 114/66
[2020-08-28] MEDS: ATORVASTATIN 10 MG TABLET PO SCH (21:05)
[2020-08-28] MEDS: TEMAZEPAM 7.5 MG CAPSULE PO PRN (21:27)
--- NOTE | 2020-08-28 21:27 | NUR ---
[facility]PS-RN NOTES: INSOMNIA PATIENT C/O INABILITY TO SLEEP. ADMINISTERED RESTORIL 7.5MG PO ORDERED. WILL CONTINUE TO MONITOR.
[2020-08-29 08:00] VITALS: BP 127/78
[2020-08-29] MEDS: METFORMIN 500 MG TABLET PO SCH ×2 (08:33→16:15)
[2020-08-29] MEDS: risperiDONE 1 MG TABLET PO SCH ×3 (08:33→16:15)
[2020-08-29] MEDS: LEVOTHYROXINE SODIUM 75 MCG TABLET PO SCH (08:34)
[2020-08-29] MEDS: LORAZEPAM 1 MG TABLET PO PRN ×2 (08:34→23:47)
[2020-08-29] MEDS: PANTOPRAZOLE 40 MG TABLET.DR PO SCH (08:34)
[2020-08-29] MEDS: BENZTROPINE MESYLATE (1 MG) 1 MG TABLET PO SCH ×3 (08:34→16:15)
[2020-08-29] MEDS: GABAPENTIN 100 MG CAPSULE PO SCH ×3 (08:34→16:15)
[2020-08-29] MEDS: METOPROLOL SUCCINATE 25 MG TAB.SR.24H PO SCH ×2 (08:35→16:15)
[2020-08-29] MEDS: FLUTICASONE PROPIONATE 16 GM BOTTLE NS SCH ×2 (08:37→16:14)
--- NOTE | 2020-08-29 09:15 | NUR ---
RN-CO: ATIVAN GIVEN FOR ANXIETY.
[2020-08-29 16:00] VITALS: BP 105/68
[2020-08-29 19:48] VITALS: BP 114/67
[2020-08-29] MEDS: TEMAZEPAM 7.5 MG CAPSULE PO PRN (21:12)
[2020-08-29] MEDS: ATORVASTATIN 10 MG TABLET PO SCH (21:12)
[2020-08-30 06:24] LABS: BASOPHILS # (AUTO) 0.1 /CMM (0.0-0.2); BASOPHILS % (AUTO) 0.5 % (0.0-2.0); EOSINOPHILS % (AUTO) 3.1 % (0.0-6.0); HEMATOCRIT 37 % (33-45); HEMOGLOBIN 11.9 g/dL (11.5-14.8); LYMPHOCYTES # (AUTO) 2.1 /CMM (0.8-4.8); LYMPHOCYTES % (AUTO) 20.8 % (20.0-44.0); MEAN CORPUSCULAR HGB CONC 33 g/dl (31.0-36.0); MEAN CORPUSCULAR VOLUME 84 fL (82-100); MONOCYTES # (AUTO) 0.8 /CMM (0.1-1.30); MONOCYTES % (AUTO) 7.7 % (2.0-12.0); NEUTROPHILS # (AUTO) 6.9 /CMM (1.8-8.9); NEUTROPHILS % (AUTO) 67.9 % (43.0-81.0); PLATELET COUNT (AUTO) 310 /CMM (150-450); RED BLOOD CELL COUNT(AUTO) 4.35 MIL/uL (4.0-5.2); WHITE BLOOD COUNT (AUTO) 10.1 K/uL (4.3-11.0)
[2020-08-30 06:33] LABS: CALCIUM, SERUM 8.8 mg/dL (8.5-10.1); CREATININE 0.9 mg/dL (0.6-1.3); POTASSIUM 4.2 mmol/L (3.5-5.1)
[2020-08-30 08:00] VITALS: BP 143/70
[2020-08-30] MEDS: PANTOPRAZOLE 40 MG TABLET.DR PO SCH (08:01)
[2020-08-30] MEDS: METFORMIN 500 MG TABLET PO SCH ×2 (08:01→16:48)
[2020-08-30] MEDS: GABAPENTIN 100 MG CAPSULE PO SCH ×3 (08:01→16:50)
[2020-08-30] MEDS: BENZTROPINE MESYLATE (1 MG) 1 MG TABLET PO SCH ×3 (08:01→16:50)
[2020-08-30] MEDS: LEVOTHYROXINE SODIUM 75 MCG TABLET PO SCH (08:01)
[2020-08-30] MEDS: risperiDONE 1 MG TABLET PO SCH ×3 (08:02→16:48)
[2020-08-30] MEDS: METOPROLOL SUCCINATE 25 MG TAB.SR.24H PO SCH ×2 (08:02→16:48)
[2020-08-30] MEDS: FLUTICASONE PROPIONATE 16 GM BOTTLE NS SCH ×3 (08:04→16:58)
--- NOTE | 2020-08-30 08:30 | NUR ---
Family Contact: SW called the pts mother, Margoth ([phone]), and left a voicemail that informed her that the pt is being discharged today to a SNF and the SW provided all of the SNF information in the voicemail including address and phone number.
--- NOTE | 2020-08-30 08:40 | NUR ---
Facility Contact: EBONI called [facility] ([phone]) and spoke to the lockstitch front edge tape sewer who stated that the netbackup administrator was not in yet and comes in around 10am. EBONI stated that she will call back at that time.
--- NOTE | 2020-08-30 09:00 | NUR ---
Open notes: Patient aaox3, no c/o discomforts. Dishevelled appearance. Consumed breakfast. Meds accepted. No delusional behaviors nor suicidal ideations. Depressed affect but interacts with roommate.
--- NOTE | 2020-08-30 09:36 | NUR ---
REFUSED DRESSING TO ARM. NO ACTIVE DRAINAGE NOR OPEN AREAS NOTED. NO S/S OF INFECTION.
--- NOTE | 2020-08-30 10:05 | NUR ---
Individual Intervention: SW met with the pt at bedside and pt stated that she does not want to be discharged to the SNF at this time and instead wants to return to the Assisted Living. SW stated that she will inform her MD and reach out to the Assisted Living as well.
--- NOTE | 2020-08-30 10:12 | NUR ---
Facility Contact: EBONI called [facility] ([phone]) and left a message for Kayla about the pt wanting to return to the facility. EBONI will follow up.
--- NOTE | 2020-08-30 11:04 | NUR ---
COVID SWAB COLLECTED AND SENT TO LAB.
--- NOTE | 2020-08-30 12:11 | NUR ---
Facility Contact: SW called [facility] ([phone]) and spoke to Kayla, admission coordinator, who stated that she feels that the pt could benefit from being discharged to a custodial facility first before returning to their facility. EBONI stated that she will attempt to speak to the pt about it.
--- NOTE | 2020-08-30 12:12 | NUR ---
Individual Intervention: SW met with the pt at bedside and informed her that she spoke to Kayla who stated that the pt can benefit from residing in a correction facility first before being discharged back to [place]. Pt stated that she is aware because she already spoke with Kayla. Pt states, "If this is what they want me to do then I want to do it, I want to go to the SNF."
[2020-08-30 16:00] VITALS: BP 147/89
--- NOTE | 2020-08-30 18:49 | NUR ---
RN Closing Note: Patient calm/cooperative, interactive with roommate and briefly with others. No suicidal behaviors. Med compliant. Good appetite.
[2020-08-30 19:55] VITALS: BP 129/75
[2020-08-30] MEDS: ATORVASTATIN 10 MG TABLET PO SCH (22:14)
[2020-08-30] MEDS: GABAPENTIN 300 MG CAPSULE PO SCH (22:16)
[2020-08-30] MEDS: TEMAZEPAM 7.5 MG CAPSULE PO PRN (22:21)
--- NOTE | 2020-08-30 22:24 | NUR ---
[facility]PS RN NOTES: 2200 NEURONTIN 300MG 1 CAP PO UNABLE TO SCAN/MANUALLY ENTERED AND ADMINISTERED.
--- NOTE | 2020-08-31 06:39 | NUR ---
[facility]PS RN CLOSING NOTES: PATIENT IS CURRENTLY LAYING ON BED SLEEPING COMFORTABLY. PATIENT SLEPT 8 HR THIS SHIFT. NO BEHAVIORAL ISSUES THIS SHIFT. PATIENT IS MEDICATION COMPLIANT. NO S/S OF DISTRESS. RESPIRATION EVEN AND UNLABORED WITH EQUAL RISE AND FALL OF THE CHEST ON ROOM AIR. SAFETY PRECAUTION MAINTAINED, BED IN LOWEST POSITION AND LOCKED. Q15 MINUTES SAFETY ROUND CONTINUED. ALL PATIENT CARE NEEDS MET ANTICIPATED. WILL CONTINUE TO MONITOR PATIENT FOR MOOD, BEHAVIOR AND SAFETY AND ENDORSE TO AM SHIFT.
[2020-08-31] MEDS: PANTOPRAZOLE 40 MG TABLET.DR PO SCH (07:48)
[2020-08-31] MEDS: LEVOTHYROXINE SODIUM 75 MCG TABLET PO SCH (07:48)
[2020-08-31 08:00] VITALS: BP 133/96
[2020-08-31] MEDS: BENZTROPINE MESYLATE (1 MG) 1 MG TABLET PO SCH ×3 (08:12→16:09)
[2020-08-31] MEDS: METOPROLOL SUCCINATE 25 MG TAB.SR.24H PO SCH ×2 (08:12→16:10)
[2020-08-31] MEDS: METFORMIN 500 MG TABLET PO SCH ×2 (08:12→16:08)
[2020-08-31] MEDS: GABAPENTIN 100 MG CAPSULE PO SCH ×3 (08:12→16:09)
[2020-08-31] MEDS: risperiDONE 1 MG TABLET PO SCH ×3 (08:13→16:09)
[2020-08-31] MEDS: FLUTICASONE PROPIONATE 16 GM BOTTLE NS SCH ×2 (08:13→16:08)
--- NOTE | 2020-08-31 09:00 | NUR ---
RN NOTE- PT ALERT ORIENTED PERSON PLACE PURPOSE DENIES ALL MED COMPLIANT INTERACTIVE PO INTAKE GOOD SLEPT WELL. SMILING AT TIMES ENGAGES
[2020-08-31 16:00] VITALS: BP 117/62
[2020-08-31 20:00] VITALS: BP 123/66
[2020-08-31] MEDS ORDERED: ATORVASTATIN 10 MG TABLET ONE (21:43)
[2020-08-31] MEDS: TEMAZEPAM 7.5 MG CAPSULE PO PRN (21:58)
[2020-08-31] MEDS: GABAPENTIN 300 MG CAPSULE PO SCH (21:59)
[2020-08-31] MEDS: ATORVASTATIN 10 MG TABLET PO SCH (21:59)
[2020-09-01 08:00] VITALS: BP 129/90
[2020-09-01] MEDS: GABAPENTIN 100 MG CAPSULE PO SCH ×2 (09:21→12:19)
[2020-09-01] MEDS: PANTOPRAZOLE 40 MG TABLET.DR PO SCH (09:21)
[2020-09-01] MEDS: risperiDONE 1 MG TABLET PO SCH ×2 (09:21→12:18)
[2020-09-01] MEDS: LEVOTHYROXINE SODIUM 75 MCG TABLET PO SCH (09:22)
[2020-09-01] MEDS: BENZTROPINE MESYLATE (1 MG) 1 MG TABLET PO SCH ×2 (09:22→12:18)
[2020-09-01] MEDS: METFORMIN 500 MG TABLET PO SCH (09:22)
[2020-09-01] MEDS: FLUTICASONE PROPIONATE 16 GM BOTTLE NS SCH (09:24)
[2020-09-01 09:26] VITALS: BP 129/90
[2020-09-01] MEDS: METOPROLOL SUCCINATE 25 MG TAB.SR.24H PO SCH (09:26)
--- NOTE | 2020-09-01 13:30 | NUR ---
Pt will be discharged to [facility] ([facility]) located at [address] [place] [id number]; ([phone]). Pt will be transported via [facility] (Trip #[id number]) at 2PM. SW informed the pts mother, Margoth ([phone]), about the pts discharge. SW also informed pts previous facility of residence, [facility] ([phone]), about the pts discharge. Upon discharge, the pt appears to be in a euthymic mood and presented with a congruent affect. Pt appears to be alert and oriented x4 (time, place, self and situation). Pt denies both suicidal and homicidal ideation as well as auditory and visual hallucinations. Pt appears to be ambulatory with an unsteady gait. Pt appears to be well groomed and appropriately dressed. Pt will continue to be under the care of psychiatrist, Dr. Yarbrough, located at [address] [address]; . Pt will be under the care of broiler chef or cook, Dr. Hall, located at [address] [place] [address]; . The choice of vendor form and multidisciplinary exit care form were done, printed, signed, and given to the patient.
--- NOTE | 2020-09-01 14:34 | NUR ---
[facility] SALES AND MARKETING PROFESSIONAL NOTE: PT DISCHARGE TO [facility] . PT HOLD DISCONTINUE, PATIENT A/O X3 , AMBULATORY STEADY GAIT , COMPLIANT WITH MEDICATIONS AND TX , NO S/S DISTRESS NOTED. PATIENT DENIES SI/HI AVH, DENIES BEEN DEPRESSED. SKIN ASSESSMENT DONE PICTURE PLACED IN THE CHART. EXIT CARE DONE PRINTED SIGN GIVEN TO PT. ALL BELONGINGS AND CONTRABAND RETURNED TO PATIENT . REPORT GIVEN TO FACILITY RN MARLENI.DR. GONZALES AND DR VELARDE NOTIFIED MEDICATION RECONCILIATION DONE. PT MOTHER NOTIFIED. VSS.
== END 2020-09-01 14:13 | DRG 885 ==
LOC: ER 09:10 → TRANSITION 12:43 → GPS 12:47
PROVIDERS: ADMIT Psychiatry & Neurology Psychosomatic Medicine; ATTEND Family Medicine
DX: F25.0 Schizoaffective disorder, bipolar type (principal); N17.0 Acute kidney failure with tubular necrosis; R45.851 Suicidal ideations; I10 Essential (primary) hypertension; I48.91 Unspecified atrial fibrillation; J44.9 Chronic obstructive pulmonary disease, unspecified; K21.9 Gastro-esophageal reflux disease without esophagitis; E88.81 Metabolic syndrome and other insulin resistance; E03.9 Hypothyroidism, unspecified; F41.9 Anxiety disorder, unspecified; F60.3 Borderline personality disorder; E78.5 Hyperlipidemia, unspecified; F43.10 Post-traumatic stress disorder, unspecified; X58.XXXA Exposure to other specified factors, initial encounter; Y92.9 Unspecified place or not applicable; F13.29 Sedative, hypnotic or anxiolytic dependence with unspecified sedative, hypnotic or anxiolytic-induced disorder; Z79.890 Hormone replacement therapy; Z79.899 Other long term (current) drug therapy; Z91.041 Radiographic dye allergy status; Z91.013 Allergy to seafood; Z88.8 Allergy status to other drugs, medicaments and biological substances; Z91.048 Other nonmedicinal substance allergy status; Z79.82 Long term (current) use of aspirin; R73.9 Hyperglycemia, unspecified; X78.9XXD Intentional self-harm by unspecified sharp object, subsequent encounter
CPT/HCPCS: 36415; 80048-TC; 80053-TC; 80061-TC; 80076-TC; 82962-TC; 84443-TC; 85025-TC; 87081-TC; C9803; G0480; J1630; J2060; J3490; J7030; U0003

== ENCOUNTER 2020-09-06 15:00 | Inpatient (IN) | payer MEDICARE, OTHER ==
[~2020-09-06] VITALS: Ht 162.6 cm; Wt 104.8 kg
[~2020-09-06 15:00] MED LIST changes: +ACET1TAB23 PO; -ASPI-1420 PO; -ATEN25TA PO; +BENZ2TAB7 PO; -DILT-32 PO; +DIPH1TAB PO; +DOXE25CA3 PO; -ESCI10TA PO; +FLUT16SP; +GABA-532 PO; +IBUP-1955 PO; +METF-440 PO; +METO25TA3 PO; -MONT10TA22 PO; -MULT-594 PO; -PREG75CA PO; +QUET200T PO; +RISP0.2515 PO; -RISP2TAB85 PO; -TIOT18CA3 IH; -TOPI25TA49 PO; -VALA100026 PO
--- NOTE | 2020-09-06 15:01 | NUR ---
LAUREN FROM [facility], SENT BY DR CORTEZ FOR PSYCH EVALUATION AND COVID TEST. PATIENT ATTEMPTED TO LEAVE FACILITY 3 TIMES AND FEELING ANXIOUS". TO ER BED 10, HOOKED TO MONITOR, CHANGED TO HOSP GOWN, WARM BLANKET PROVIDED, PATIENT AAO x 3. NAD NOTED. SITTER AT BEDSIDE FOR SAFETY. DR OSULLIVAN AT BEDSIDE
--- NOTE | 2020-09-06 15:15 | NUR ---
URINE SAMPLE COLLECTED AND SENT TO LAB
[2020-09-06 15:28] LABS: BASOPHILS # (AUTO) 0.1 /CMM (0.0-0.2); BASOPHILS % (AUTO) 0.6 % (0.0-2.0); EOSINOPHILS % (AUTO) 0.3 % (0.0-6.0); HEMATOCRIT 39 % (33-45); HEMOGLOBIN 12.5 g/dL (11.5-14.8); LYMPHOCYTES # (AUTO) 1.6 /CMM (0.8-4.8); LYMPHOCYTES % (AUTO) 12.9 % (20.0-44.0); MEAN CORPUSCULAR HGB CONC 33 g/dl (31.0-36.0); MEAN CORPUSCULAR VOLUME 84 fL (82-100); MONOCYTES # (AUTO) 0.6 /CMM (0.1-1.30); MONOCYTES % (AUTO) 4.6 % (2.0-12.0); NEUTROPHILS # (AUTO) 10.3 /CMM (1.8-8.9); NEUTROPHILS % (AUTO) 81.6 % (43.0-81.0); PLATELET COUNT (AUTO) 362 /CMM (150-450); WHITE BLOOD COUNT (AUTO) 12.7 K/uL (4.3-11.0)
[2020-09-06] MEDS ORDERED: LORA-259 PO (15:38)
[2020-09-06] MEDS ORDERED: NEOM1OIN10 TP (15:38)
[2020-09-06] MEDS ORDERED: ASCO-352 PO (15:38)
[2020-09-06] MEDS ORDERED: MAGN400O6 PO (15:38)
[2020-09-06] MEDS ORDERED: TEMA7.5C12 PO (15:38)
[2020-09-06] MEDS ORDERED: ACET-868 PO (15:38)
[2020-09-06] MEDS ORDERED: BISA10SU11 RC (15:38)
[2020-09-06] MEDS ORDERED: ZINC1CAP2 PO (15:38)
[2020-09-06] MEDS ORDERED: CHOL100062 PO (15:38)
[2020-09-06] MEDS ORDERED: NA P133E RC (15:38)
--- NOTE | 2020-09-06 15:41 | NUR ---
RAPID COVID SWAB DONE AND SENT TO LAB
[2020-09-06 15:47] LABS: BILIRUBIN,URINE NEGATIVE (NEGATIVE); COLOR,URINE YELLOW (YELLOW); LEUKOCYTE ESTERASE ,URINE SMALL (NEGATIVE); NITRITE, URINE POSITIVE (NEGATIVE); PROTEIN,URINE NEGATIVE (NEGATIVE); UGLUCOSE NEGATIVE (NEGATIVE); UROBILINOGEN,URINE 0.2 EU/dL (0.2)
[2020-09-06 15:52] LABS: ALANINE AMINOTRANSFERASE 33 U/L (12-78); ALBUMIN 3.7 g/dL (3.4-5.0); ALCOHOL, BLOOD < 3 mg/dL (0-0); ALKALINE PHOSPHATASE 117 U/L (46-116); ASPARTATE AMINOTRANSFERASE 22 U/L (15-37); BACTERIA,URINE 2+ /HPF (None Seen); BILIRUBIN,DIRECT 0.1 mg/dL (0.0-0.2); BILIRUBIN,TOTAL 0.2 mg/dL (0.2-1.0); CALCIUM, SERUM 9.3 mg/dL (8.5-10.1); CARBON DIOXIDE 23 mmol/L (21-32); CHLORIDE 103 mmol/L (98-107); CREATININE 1.2 mg/dL (0.6-1.3); GLUCOSE 113 mg/dL (74-106); POTASSIUM 4.1 mmol/L (3.5-5.1); RBC,URINE 0-2 /HPF (0-2); SODIUM SERUM 140 mmol/L (136-145); TOTAL PROTEIN, SERUM 7.7 g/dL (6.4-8.2); UREA NITROGEN, BLOOD 15 mg/dL (7-18)
[2020-09-06 16:20] LABS: ACETAMINOPHEN < 2 ug/ml (10-30)
--- NOTE | 2020-09-06 16:52 | NUR ---
RECEIVED RESULT FROM MAIN LAB: RAPID COVID NEGATIVE
--- NOTE | 2020-09-06 17:04 | NUR ---
SEDA CHAPARRO [phone].
--- NOTE | 2020-09-06 18:22 | NUR ---
PATIENT PROVIDED W FOOD. TOLERATING PO WELL.
--- NOTE | 2020-09-06 18:45 | NUR ---
CRISIS REGISTERED DENTAL ASSISTANT SHANKAR HENAO AT BEDSIDE
--- NOTE | 2020-09-06 19:00 | NUR ---
PLACED ON 5150 HOLD FOR DANGER TO SELF BY SHANKAR HENAO RN.
--- NOTE | 2020-09-06 19:12 | NUR ---
REPORT GIVEN TO NICK ABRAHMA FOR REEMA
--- NOTE | 2020-09-06 19:54 | NUR ---
REPORT GIVEN TO REMI ABRAHAM FOR REEMA.
--- NOTE | 2020-09-06 20:20 | NUR ---
PATIENT TAKEN UP TO ASSIGNED ROOM FOR REEMA.
[2020-09-06 20:21] VITALS: BP 115/60
[2020-09-06] MEDS ORDERED: MAGNESIUM HYDROXIDE 30 ML UDC PO PRN ×2 (21:00→21:30)
[2020-09-06] MEDS ORDERED: MAG HYDROX/AL HYDROX/SIMETH 30 ML UDC PO PRN (21:00)
[2020-09-06] MEDS ORDERED: ACETAMINOPHEN 325 MG TABLET PO PRN ×2 (21:00→21:30)
[2020-09-06] MEDS ORDERED: BLOOD SUGAR DIAGNOSTIC 1 EACH STRIP IN ONE (21:00)
--- NOTE | 2020-09-06 21:00 | NUR ---
GPS COMPACTING MACHINE OPERATOR/TENDER NOTES: ADMITTED A 60YO FEMALE FROM [facility] ON 5150 HOLD FOR DANGER TO SELF. PER HOLD, PATIENT ATTEMPTED TO ELOPE FROM FACILITY 3X BECAUSE SHE WAS HAVING PANIC ATTACK. STATED, "I'M RUNNING TO THE STREET TO GET HIT BY A CAR", PATIENT HAS NO REGARD FOR HER SAFETY, POOR INSIGHT AND IMPAIRED JUDGEMENT. PATIENT WILL BE UNDER THE CARE OF DR. CORTEZ AND JOMAR RO,CYDNEY FOR PSYCH AND MEDICAL DOCTORS RESPECTIVELY. UPON FACE TO FACE ASSESSMENT, PATIENT PRESENTS ALERT AND ORIENTED X4, NO COMPLAINS OF PAIN, NO FACIAL GRIMACE NOTED, APPEARS UNKEMPT, DISHEVELED AND VERY ANXIOUS.PRESENTS WITH A FLAT AFFECT SHEAR ASSEMBLER TRIES TO COMMUNICATE WITH HER. PATIENT IS NOTED TO BE UNPREDICTABLE WELL. REALITY ORIENTATION DONE. SKIN AND BODY ASSESSMENT DONE.PICTURES TAKEN AND PLACED IN THE CHART.Q15 MIN CHECKS STARTED. CARE PLAN INITIATED. PATIENT UNABLE TO SIGN ADMISSION PAPERS PATIENT WAS NOTED TO BE ANXIOUS. BELONGINGS AND CONTRABAND CHECKED. ENVIRONMENTAL SAFETY CHECK DONE. WILL MONITOR PATIENT FOR MOOD, SAFETY AND BEHAVIOR.
[2020-09-06] MEDS ORDERED: BISACODYL SUPP (10 MG) 10 MG/SUPP.RECT SUPP.RECT RC PRN (21:30)
[2020-09-06] MEDS: TEMAZEPAM 15 MG CAPSULE PO PRN (21:58)
--- NOTE | 2020-09-06 21:58 | NUR ---
NURSES NOTES: PATIENT REQUESTED FOR SLEEPING MEDICATION. RESTORIL 15 MG GIVEN ORALLY PRN ORDER. WILL MONITOR PATIENT'S SLEEP PATTERN.
[2020-09-07] MEDS: LORAZEPAM 0.5 MG TABLET PO PRN ×2 (01:46→13:45)
--- NOTE | 2020-09-07 01:47 | NUR ---
RN NOTES: ANXIETY PT. C/O FEELING ANXIOUS , ATIVAN 0.5 MG PO PRN GIVEN PER PT. REQUEST , WILL CONTINUE TO MONITOR.
[2020-09-07 07:09] LABS: CREATININE 1.1 mg/dL (0.6-1.3)
[2020-09-07 08:00] VITALS: BP 126/90
[2020-09-07] MEDS: NEOMY SULF/BACITRAC ZN/POLY 15 GM TUBE TP SCH (09:00)
[2020-09-07] MEDS: FLUTICASONE PROPIONATE 16 GM BOTTLE NS SCH (09:00)
[2020-09-07] MEDS: ZINC SULFATE 220 MG CAPSULE PO SCH (09:06)
[2020-09-07] MEDS: ASCORBIC ACID 500 MG TABLET PO SCH (09:06)
[2020-09-07] MEDS: PANTOPRAZOLE 40 MG TABLET.DR PO SCH (09:06)
[2020-09-07] MEDS: CHOLECALCIFEROL 1,000 UNIT TABLET (VIT D3) PO SCH (09:06)
[2020-09-07] MEDS: LEVOTHYROXINE SODIUM 175 MCG TABLET PO SCH (09:06)
[2020-09-07] MEDS: CEPHALEXIN MONOHYDRATE 500 MG CAPSULE PO SCH ×2 (09:06→16:18)
[2020-09-07] MEDS: METFORMIN 500 MG TABLET PO SCH ×2 (09:06→16:18)
[2020-09-07] MEDS: METOPROLOL SUCCINATE 25 MG TAB.SR.24H PO SCH ×2 (09:06→16:19)
--- NOTE | 2020-09-07 09:31 | NUR ---
RN NOTE: RECEIVED IN BED, EASILY AROUSED, AAOX3 AND DENIES PAIN/DISCOMFORTS. PO MED COMPLIANT BUT REFUSED NEOSPORIN TO LFA SCRATCHES "I DON'T NEED THEY ARE HEALED." AREA PINK, INTACT, NO S/S OF INFECTION. WITHDRAWN TO ROOM MOSTLY, EXITING ROOM BRIEFLY. DENIES SI/HI, AUDITORY AND VISUAL HALLUCINATIONS. WILL CONTINUE TO MONITOR.
[2020-09-07] MEDS: GABAPENTIN 300 MG CAPSULE PO SCH ×4 (13:45→21:26)
[2020-09-07] MEDS: BENZTROPINE MESYLATE (1 MG) 1 MG TABLET PO SCH ×3 (13:46→16:19)
[2020-09-07] MEDS: busPIRone 5 MG TABLET PO SCH ×2 (13:46→16:18)
[2020-09-07] MEDS: risperiDONE 1 MG TABLET PO SCH ×2 (13:47→16:18)
--- NOTE | 2020-09-07 15:39 | NUR ---
Psychosocial Note: I, Syeda Mederos MSW, attest to the patients previous psychosocial information dated on 08/23/20. Update On Events leading to Admission and Discharge Plan: Pt has returned to the geriatric psychiatric unit within a few days of her previous discharge date (09/01/20) to [facility]. Pt is a 60 year old female who was admitted to [facility] on 09/06/20 on a 5150 hold as a danger to herself. Per psychiatric hold, pt was evaluated after she presented at the [facility] from [facility]. Pt had attempted to elope from the facility and was running around the facility ground. During the face to face assessment, pt states, I tried to elope from the facility three times because I am having a panic attack. I am running on the street to get hit by a car. Pt has no regard for her safety, has poor insight, and impaired judgment. Upon social service director evaluation, pt appears to be alert and oriented x4 (time, place, self and situation). Pt appears to be in a depressed mood and presents with a distressed and anxious affect. Pt was observed to be fidgeting and her hands were shaking when the SW met with her at bedside. Pt states that she has been feeling depressed and lonely due to a lack of social supports and states that she has a plan to overdose since the attempt with cutting "did not work." Pts insight and judgment appear to be impaired and the pts impulse control is poor. Pt currently resides at [facility] and per pt she would like to return there. SW will work with the pt and the pts MD regarding appropriate discharge planning. SW will form a safe and proper discharge.
[2020-09-07 16:00] VITALS: BP 132/72
[2020-09-07 19:50] VITALS: BP 98/64
[2020-09-07 19:59] VITALS: BP 98/64
[2020-09-07 21:23] VITALS: BP 103/75
[2020-09-07] MEDS: ATORVASTATIN 10 MG TABLET PO SCH (21:26)
--- NOTE | 2020-09-08 04:57 | NUR ---
RN NOTE PATIENT HAS BEEN SLEEPING WELL. CALM & RELAXED, REDIRECTABLE, NO BEHAVIOR EPISODE NOTED AT NIGHT.
[2020-09-08 08:00] VITALS: BP 127/81
[2020-09-08] MEDS: PANTOPRAZOLE 40 MG TABLET.DR PO SCH (08:16)
[2020-09-08] MEDS: LEVOTHYROXINE SODIUM 175 MCG TABLET PO SCH (08:17)
[2020-09-08] MEDS: FLUTICASONE PROPIONATE 16 GM BOTTLE NS SCH (08:36)
[2020-09-08] MEDS: ZINC SULFATE 220 MG CAPSULE PO SCH (08:36)
[2020-09-08] MEDS: CHOLECALCIFEROL 1,000 UNIT TABLET (VIT D3) PO SCH (08:36)
[2020-09-08] MEDS: risperiDONE 1 MG TABLET PO SCH ×3 (08:36→17:12)
[2020-09-08] MEDS: METOPROLOL SUCCINATE 25 MG TAB.SR.24H PO SCH ×2 (08:37→17:13)
[2020-09-08] MEDS: GABAPENTIN 300 MG CAPSULE PO SCH ×4 (08:38→21:24)
[2020-09-08] MEDS: busPIRone 5 MG TABLET PO SCH ×3 (08:38→17:08)
[2020-09-08] MEDS: ASCORBIC ACID 500 MG TABLET PO SCH (08:38)
[2020-09-08] MEDS: CEPHALEXIN MONOHYDRATE 500 MG CAPSULE PO SCH ×2 (08:39→17:08)
[2020-09-08] MEDS: BENZTROPINE MESYLATE (1 MG) 1 MG TABLET PO SCH ×3 (08:39→17:08)
[2020-09-08] MEDS: NEOMY SULF/BACITRAC ZN/POLY 15 GM TUBE TP SCH (08:39)
[2020-09-08] MEDS: METFORMIN 500 MG TABLET PO SCH ×2 (08:39→17:08)
[2020-09-08 16:00] VITALS: BP 126/70
[2020-09-08 20:00] VITALS: BP 123/76
[2020-09-08 20:14] VITALS: BP 123/76
[2020-09-08] MEDS: ATORVASTATIN 10 MG TABLET PO SCH (21:24)
[2020-09-08] MEDS: TEMAZEPAM 15 MG CAPSULE PO PRN (22:06)
[2020-09-09] MEDS: PANTOPRAZOLE 40 MG TABLET.DR PO SCH (07:42)
[2020-09-09] MEDS: LEVOTHYROXINE SODIUM 175 MCG TABLET PO SCH (07:42)
[2020-09-09 08:00] VITALS: BP 121/98
[2020-09-09] MEDS: CHOLECALCIFEROL 1,000 UNIT TABLET (VIT D3) PO SCH (08:30)
[2020-09-09] MEDS: ASCORBIC ACID 500 MG TABLET PO SCH (08:30)
[2020-09-09] MEDS: risperiDONE 1 MG TABLET PO SCH ×3 (08:31→17:35)
[2020-09-09] MEDS: GABAPENTIN 300 MG CAPSULE PO SCH ×4 (08:31→21:14)
[2020-09-09] MEDS: BENZTROPINE MESYLATE (1 MG) 1 MG TABLET PO SCH ×3 (08:31→17:33)
[2020-09-09] MEDS: CEPHALEXIN MONOHYDRATE 500 MG CAPSULE PO SCH (08:31)
[2020-09-09] MEDS: METFORMIN 500 MG TABLET PO SCH ×2 (08:31→17:33)
[2020-09-09] MEDS: METOPROLOL SUCCINATE 25 MG TAB.SR.24H PO SCH ×2 (08:31→17:33)
[2020-09-09] MEDS: ZINC SULFATE 220 MG CAPSULE PO SCH (08:31)
[2020-09-09] MEDS: busPIRone 5 MG TABLET PO SCH ×3 (08:34→17:33)
[2020-09-09] MEDS: NEOMY SULF/BACITRAC ZN/POLY 15 GM TUBE TP SCH (09:00)
[2020-09-09] MEDS: FLUTICASONE PROPIONATE 16 GM BOTTLE NS SCH (09:00)
[2020-09-09] MEDS: LORAZEPAM 0.5 MG TABLET PO PRN ×2 (09:40→21:56)
--- NOTE | 2020-09-09 15:59 | NUR ---
Individual Intervention: SW met with the pt at bedside and informed her that she been exhibiting a calmer demeanor and that if she continues to show improvement she will be discharged on Sunday to a locked facility.
[2020-09-09 16:00] VITALS: BP 115/73
[2020-09-09 19:55] VITALS: BP 100/69
[2020-09-09] MEDS: NITROFURANTOIN/NITROFURAN MAC 100 MG CAPSULE PO SCH (21:13)
[2020-09-09] MEDS: ATORVASTATIN 10 MG TABLET PO SCH (21:13)
--- NOTE | 2020-09-10 06:15 | NUR ---
ANABELL SLEPT FOR 7.5 HOURS, RESTING IN BED AT THIS TIME, NO APPARENT DISTRESS. SAFETY PRECAUTIONS IN PLACE, WILL CONTINUE MONITORING CLOSELY.
[2020-09-10] MEDS: LEVOTHYROXINE SODIUM 175 MCG TABLET PO SCH (07:41)
[2020-09-10] MEDS: PANTOPRAZOLE 40 MG TABLET.DR PO SCH (07:41)
[2020-09-10 08:00] VITALS: BP 108/59
[2020-09-10] MEDS: ZINC SULFATE 220 MG CAPSULE PO SCH (08:40)
[2020-09-10] MEDS: busPIRone 5 MG TABLET PO SCH ×3 (08:40→17:12)
[2020-09-10] MEDS: risperiDONE 1 MG TABLET PO SCH ×3 (08:40→17:11)
[2020-09-10] MEDS: NITROFURANTOIN/NITROFURAN MAC 100 MG CAPSULE PO SCH ×2 (08:41→20:50)
[2020-09-10] MEDS: CHOLECALCIFEROL 1,000 UNIT TABLET (VIT D3) PO SCH (08:41)
[2020-09-10] MEDS: METFORMIN 500 MG TABLET PO SCH ×2 (08:41→17:10)
[2020-09-10] MEDS: GABAPENTIN 300 MG CAPSULE PO SCH ×4 (08:41→21:14)
[2020-09-10] MEDS: BENZTROPINE MESYLATE (1 MG) 1 MG TABLET PO SCH ×3 (08:41→17:11)
[2020-09-10] MEDS: METOPROLOL SUCCINATE 25 MG TAB.SR.24H PO SCH ×2 (08:41→17:11)
[2020-09-10] MEDS: NEOMY SULF/BACITRAC ZN/POLY 15 GM TUBE TP SCH (08:42)
[2020-09-10] MEDS: ASCORBIC ACID 500 MG TABLET PO SCH (08:42)
[2020-09-10] MEDS: FLUTICASONE PROPIONATE 16 GM BOTTLE NS SCH (09:00)
--- NOTE | 2020-09-10 12:47 | NUR ---
Family Contact: SW called the pts mother, Margoth Hodges ([phone]), and informed her that the pt is projected to be discharged on Sunday. EBONI stated that she is in the process of referring the pt to alternate placements and that the SW will keep her updated regarding the discharge.
--- NOTE | 2020-09-10 13:33 | NUR ---
SNF Referral: SW faxed a referral to [facility] with attn to Saima to the fax number: [phone].
--- NOTE | 2020-09-10 15:15 | NUR ---
SNF Contact: Reg ([phone]) from [facility] stated that the pt was accepted to their facility.
[2020-09-10 16:00] VITALS: BP 133/60
[2020-09-10] MEDS: LORAZEPAM 0.5 MG TABLET PO PRN (19:44)
--- NOTE | 2020-09-10 19:45 | NUR ---
RN NOTES: ANXIETY PT. C/O FEELING ANXIOUS , ATIVAN 0.5 MG PO PRN GIVEN PER PT. REQUEST , WILL CONTINUE TO MONITOR.
[2020-09-10 20:42] VITALS: BP 128/78
[2020-09-10] MEDS: ATORVASTATIN 10 MG TABLET PO SCH (21:14)
[2020-09-10] MEDS: TEMAZEPAM 15 MG CAPSULE PO PRN (22:46)
--- NOTE | 2020-09-10 22:48 | NUR ---
RN NOTES: INSOMNIA PATIENT IS UNABLE TO SLEEP, PRN RESTORIL 15 MG PO GIVEN. WILL CONTINUE TO MONITOR.
[2020-09-11] MEDS: LEVOTHYROXINE SODIUM 175 MCG TABLET PO SCH (07:38)
[2020-09-11] MEDS: PANTOPRAZOLE 40 MG TABLET.DR PO SCH (07:38)
[2020-09-11 08:00] VITALS: BP 127/79
[2020-09-11] MEDS: BENZTROPINE MESYLATE (1 MG) 1 MG TABLET PO SCH ×3 (08:43→16:18)
[2020-09-11] MEDS: risperiDONE 1 MG TABLET PO SCH ×3 (08:43→16:18)
[2020-09-11] MEDS: ASCORBIC ACID 500 MG TABLET PO SCH (08:43)
[2020-09-11] MEDS: FLUTICASONE PROPIONATE 16 GM BOTTLE NS SCH ×2 (08:43→08:50)
[2020-09-11] MEDS: busPIRone 5 MG TABLET PO SCH ×3 (08:43→16:17)
[2020-09-11] MEDS: CHOLECALCIFEROL 1,000 UNIT TABLET (VIT D3) PO SCH (08:44)
[2020-09-11] MEDS: METFORMIN 500 MG TABLET PO SCH ×2 (08:44→16:18)
[2020-09-11] MEDS: GABAPENTIN 300 MG CAPSULE PO SCH ×4 (08:44→21:09)
[2020-09-11] MEDS: ZINC SULFATE 220 MG CAPSULE PO SCH (08:44)
[2020-09-11] MEDS: METOPROLOL SUCCINATE 25 MG TAB.SR.24H PO SCH ×2 (08:44→16:18)
[2020-09-11] MEDS: NITROFURANTOIN/NITROFURAN MAC 100 MG CAPSULE PO SCH ×2 (08:44→21:08)
[2020-09-11] MEDS: NEOMY SULF/BACITRAC ZN/POLY 15 GM TUBE TP SCH (08:50)
[2020-09-11 16:00] VITALS: BP 116/77
[2020-09-11 20:09] VITALS: BP 119/76
[2020-09-11] MEDS: ATORVASTATIN 10 MG TABLET PO SCH (21:09)
[2020-09-11] MEDS: TEMAZEPAM 15 MG CAPSULE PO PRN (21:16)
[2020-09-11] MEDS: LORAZEPAM 0.5 MG TABLET PO PRN (22:31)
[2020-09-12 08:00] VITALS: BP 135/96
[2020-09-12] MEDS: NEOMY SULF/BACITRAC ZN/POLY 15 GM TUBE TP SCH (09:00)
[2020-09-12] MEDS: FLUTICASONE PROPIONATE 16 GM BOTTLE NS SCH (09:00)
--- NOTE | 2020-09-12 10:38 | NUR ---
RN NOTE PATIENT RECEIVED CALM AND SLEEPING IN BED. NO BEHAVIOR EPISODE NOTED AT THIS TIME. BED LOCKED IN LOWEST POSITION. ALL SAFETY MEASURES FOLLOWED. WILL CONTINUE TO MONITOR. END RN NOTE. GREY
[2020-09-12] MEDS: PANTOPRAZOLE 40 MG TABLET.DR PO SCH (11:55)
[2020-09-12] MEDS: busPIRone 5 MG TABLET PO SCH ×3 (11:55→17:37)
[2020-09-12] MEDS: risperiDONE 1 MG TABLET PO SCH ×3 (11:55→17:38)
[2020-09-12] MEDS: GABAPENTIN 300 MG CAPSULE PO SCH ×4 (11:55→21:31)
[2020-09-12] MEDS: METFORMIN 500 MG TABLET PO SCH ×2 (11:56→17:38)
[2020-09-12] MEDS: BENZTROPINE MESYLATE (1 MG) 1 MG TABLET PO SCH ×3 (11:56→17:37)
[2020-09-12] MEDS: NITROFURANTOIN/NITROFURAN MAC 100 MG CAPSULE PO SCH ×2 (11:56→21:31)
[2020-09-12] MEDS: CHOLECALCIFEROL 1,000 UNIT TABLET (VIT D3) PO SCH (11:56)
[2020-09-12] MEDS: LEVOTHYROXINE SODIUM 175 MCG TABLET PO SCH (11:57)
[2020-09-12] MEDS: ZINC SULFATE 220 MG CAPSULE PO SCH (11:57)
[2020-09-12] MEDS: ASCORBIC ACID 500 MG TABLET PO SCH (11:57)
[2020-09-12] MEDS: METOPROLOL SUCCINATE 25 MG TAB.SR.24H PO SCH ×2 (11:57→17:37)
[2020-09-12 16:00] VITALS: BP 153/95
[2020-09-12 20:08] VITALS: BP 113/70
[2020-09-12] MEDS: ATORVASTATIN 10 MG TABLET PO SCH (21:31)
[2020-09-12] MEDS: TEMAZEPAM 15 MG CAPSULE PO PRN (21:33)
--- NOTE | 2020-09-12 21:33 | NUR ---
NURSES NOTES: PATIENT REQUESTED FOR PAIN MEDICATION. RESTORIL 15 MG GIVEN ORALLY ORDERED. WILL CONTINUE TO MONITOR PATIENT'S SLEEP PATTERN.
[2020-09-12] MEDS: LORAZEPAM 0.5 MG TABLET PO PRN (22:44)
--- NOTE | 2020-09-12 22:44 | NUR ---
NURSES NOTES: PATIENT REQUESTED FOR ATIVAN FOR ANXIETY. ATIVAN 0.5 MG GIVEN ORALLY ORDERED. WILL MONITOR PATIENT'S ANXIETY LEVEL.
[2020-09-13 08:00] VITALS: BP 156/90
[2020-09-13] MEDS: GABAPENTIN 300 MG CAPSULE PO SCH ×2 (08:25→12:28)
[2020-09-13] MEDS: LEVOTHYROXINE SODIUM 175 MCG TABLET PO SCH (08:25)
[2020-09-13] MEDS: PANTOPRAZOLE 40 MG TABLET.DR PO SCH (08:25)
[2020-09-13 08:26] VITALS: BP 156/90
[2020-09-13] MEDS: ASCORBIC ACID 500 MG TABLET PO SCH (08:26)
[2020-09-13] MEDS: busPIRone 5 MG TABLET PO SCH ×2 (08:26→12:27)
[2020-09-13] MEDS: risperiDONE 1 MG TABLET PO SCH ×2 (08:26→12:28)
[2020-09-13] MEDS: NITROFURANTOIN/NITROFURAN MAC 100 MG CAPSULE PO SCH (08:26)
[2020-09-13] MEDS: ZINC SULFATE 220 MG CAPSULE PO SCH (08:26)
[2020-09-13] MEDS: BENZTROPINE MESYLATE (1 MG) 1 MG TABLET PO SCH ×2 (08:26→12:28)
[2020-09-13] MEDS: METFORMIN 500 MG TABLET PO SCH (08:26)
[2020-09-13] MEDS: METOPROLOL SUCCINATE 25 MG TAB.SR.24H PO SCH (08:26)
[2020-09-13] MEDS: CHOLECALCIFEROL 1,000 UNIT TABLET (VIT D3) PO SCH (08:29)
[2020-09-13] MEDS: FLUTICASONE PROPIONATE 16 GM BOTTLE NS SCH (08:33)
[2020-09-13] MEDS: NEOMY SULF/BACITRAC ZN/POLY 15 GM TUBE TP SCH (08:34)
--- NOTE | 2020-09-13 09:00 | NUR ---
RN NOTE- PT ALERT ORIENTED TO PERSON PLACE PURPOSE BLUNTED AFFECT INTERACTIVE THOUGHA BIT SLOW TO RESPOND VERBALLY, PO INTAKE GOOD MED COMPLIANT VISIBLE ON UNIT
--- NOTE | 2020-09-13 12:45 | NUR ---
Family Contact: SW called the pts mother, Margoth Hodges ([phone]), and informed her that the pt is being discharged to [facility] and provided the contact info and address.
--- NOTE | 2020-09-13 12:50 | NUR ---
Discharge Note: Pt will be discharged to [facility] ([facility]) [place] [address] [place] [address]; ([phone]). Pt will be transported via [facility] at 2PM. SW informed the pts mother, Margoth Hodges ([phone]), about the pts discharge. Upon discharge, pt appears to be in a euphoric mood and presented with a calm affect. Pt denies both suicidal and homicidal ideation as well as auditory and visual hallucinations. Pt appears to be alert and oriented x4. Pt appears to be ambulatory with an unsteady gait. Pt appears to be disheveled yet appropriately dressed. Pt will continue to be under the care of psychiatrist, Dr. Yarbrough, located at [address] [facility], [facility]. [address] [place] [id number]; and sponge fisherman, Dr. Hall, located at [address] [place] [address]; . Pt signed the Choice of Vendor form which was placed in the chart. The Choice of vendor form and the multidisciplinary exit care form was done, printed, signed, and given to the patient.
--- NOTE | 2020-09-13 14:05 | NUR ---
RN NOTE- PT DC AT THIS TIME VIA [facility] ACCOMPANIED BY AMBULANCE STAFF TO [facility]. SHE IS ALERT ORIENTED TO PERSON PLACE TIME AND PURPOSE. DENIES SI HI AH VH. PT BELONGINGS RETURNED TO HER AND SIGNED FOR. REPORT PHONED INTO FACILITY. VS STABLE. REFUSES INFLUENZA AND PNA VACCINES,. SKIN INTACT. ESCORTED OFF UNIT BY STAFF .
== END 2020-09-13 14:05 | DRG 885 ==
LOC: ER 15:00 → GPS 19:47
PROVIDERS: ADMIT Psychiatry & Neurology Psychosomatic Medicine; ATTEND Nurse Practitioner Acute Care
DX: F25.9 Schizoaffective disorder, unspecified (principal); N17.0 Acute kidney failure with tubular necrosis; G92 Toxic encephalopathy; N39.0 Urinary tract infection, site not specified; R45.851 Suicidal ideations; Z68.41 Body mass index [BMI] 40.0-44.9, adult; E78.5 Hyperlipidemia, unspecified; E66.01 Morbid (severe) obesity due to excess calories; E03.9 Hypothyroidism, unspecified; I48.91 Unspecified atrial fibrillation; K21.9 Gastro-esophageal reflux disease without esophagitis; J44.9 Chronic obstructive pulmonary disease, unspecified; I10 Essential (primary) hypertension; Z88.8 Allergy status to other drugs, medicaments and biological substances; Z91.041 Radiographic dye allergy status; Z91.013 Allergy to seafood; Z91.048 Other nonmedicinal substance allergy status; Z79.84 Long term (current) use of oral hypoglycemic drugs; Z79.899 Other long term (current) drug therapy; F29 Unspecified psychosis not due to a substance or known physiological condition; F41.9 Anxiety disorder, unspecified; F60.3 Borderline personality disorder; B96.89 Other specified bacterial agents as the cause of diseases classified elsewhere; K59.00 Constipation, unspecified; E11.42 Type 2 diabetes mellitus with diabetic polyneuropathy; F13.10 Sedative, hypnotic or anxiolytic abuse, uncomplicated; F43.10 Post-traumatic stress disorder, unspecified; B96.20 Unspecified Escherichia coli [E. coli] as the cause of diseases classified elsewhere; Z20.822 Contact with and (suspected) exposure to COVID-19
CPT/HCPCS: 36415; 80048-TC; 80061-TC; 80076-TC; 81001; 82565-TC; 82962-TC; 84703-TC; 85025-TC; 87081-TC; 87086-TC; 87186-TC; C9803; G0480

== ENCOUNTER 2022-05-09 15:27 | Emergency (ER) | payer MEDICARE, OTHER ==
[~2022-05-09] VITALS: Ht 162.6 cm; Wt 108.9 kg
[~2022-05-09 15:27] MED LIST changes: +ACET-868 PO; -ACET1TAB23 PO; -ALPR2TAB7 PO; +ASCO-352 PO; +BISA10SU11 RC; +CHOL100062 PO; -DIPH1TAB PO; -DOXE25CA3 PO; -IBUP-1955 PO; -LOPE2TAB25 PO; +LORA-259 PO; +MAGN400O6 PO; +NA P133E RC; +NEOM1OIN10 TP; -QUET200T PO; -TEMA30CA PO; +TEMA7.5C12 PO; +ZINC1CAP2 PO
--- NOTE | 2022-05-09 15:40 | NUR ---
Received pt 62yrs female came from psych evaluation cleanic for evaluation of tachycardia HR 122B/MIN
[2022-05-09] MEDS ORDERED: IV NS 0.9% 1,000 ML BAG IV ONE (16:00)
--- NOTE | 2022-05-09 16:00 | NUR ---
PT refused to inserted any iv only under U
[2022-05-09] MEDS ORDERED: DILT-2 PO (16:41)
[2022-05-09] MEDS ORDERED: HYDR50TA61 PO (16:41)
[2022-05-09] MEDS ORDERED: POTA10TA10 PO (16:41)
[2022-05-09] MEDS ORDERED: CLOZ25TA4 PO ×2 (16:41)
[2022-05-09] MEDS ORDERED: LIDO30AD10 TP (16:41)
[2022-05-09] MEDS ORDERED: DIVA500T54 PO (16:41)
[2022-05-09] MEDS ORDERED: FOLI1TAB26 PO (16:41)
[2022-05-09] MEDS ORDERED: METO25TA6 PO (16:41)
[2022-05-09] MEDS ORDERED: LEVA15HF4 IH (16:41)
[2022-05-09] MEDS ORDERED: BUDE10.2 IH (16:41)
--- NOTE | 2022-05-09 16:45 | NUR ---
BLood drow by lab tach at bed side
--- NOTE | 2022-05-09 17:00 | NUR ---
DR. HUANG AWARE PT REFUSED TO INSERTED IV LINE AND IVF
[2022-05-09 17:15] LABS: BASOPHILS # (AUTO) 0.1 K/uL (0.0-0.2); BASOPHILS % (AUTO) 0.7 % (0.0-2.0); EOSINOPHILS % (AUTO) 1.6 % (0.0-6.0); HEMATOCRIT 37 % (33-45); HEMOGLOBIN 11.7 g/dL (11.5-14.8); LYMPHOCYTES # (AUTO) 2.3 K/uL (0.8-4.8); LYMPHOCYTES % (AUTO) 21.2 % (20.0-44.0); MEAN CORPUSCULAR HGB CONC 32 g/dl (31.0-36.0); MEAN CORPUSCULAR VOLUME 73 fL (82-100); MONOCYTES # (AUTO) 0.7 K/uL (0.1-1.30); NEUTROPHILS # (AUTO) 7.7 K/uL (1.8-8.9); NEUTROPHILS % (AUTO) 70.5 % (43.0-81.0); PLATELET COUNT (AUTO) 348 K/uL (150-450); RED BLOOD CELL COUNT(AUTO) 5.07 MIL/uL (4.0-5.2); WHITE BLOOD COUNT (AUTO) 10.9 K/uL (4.3-11.0)
[2022-05-09 17:46] LABS: CALCIUM, SERUM 9.4 mg/dL (8.5-10.1); CARBON DIOXIDE 27 mmol/L (21-32); CHLORIDE 103 mmol/L (98-107); CREATININE 1.1 mg/dL (0.6-1.3); GLUCOSE 213 mg/dL (74-106); POTASSIUM 4.2 mmol/L (3.5-5.1); SODIUM SERUM 141 mmol/L (136-145); UREA NITROGEN, BLOOD 17 mg/dL (7-18)
[2022-05-09 17:47] LABS: ALCOHOL, BLOOD < 3 mg/dL (0-0)
[2022-05-09 18:00] LABS: THYROID STIMULATING HORMONE 2.419 uIU/mL (0.358-3.74)
--- NOTE | 2022-05-09 18:00 | NUR ---
UA SENT TO LAB
--- NOTE | 2022-05-09 18:17 | NUR ---
pt refused iv to inserted tolorated PO intack
--- NOTE | 2022-05-09 19:35 | NUR ---
HAND OFF TIM ABRAHAM
--- NOTE | 2022-05-09 19:58 | NUR ---
Patient discharged to home in stable condition. Written and verbal after care instructions given. Patient verbalizes understanding of instruction.
[2022-05-10 00:18] VITALS: BP 138/89
== END 2022-05-09 20:00 | disposition home or self-care (01) ==
LOC: ER 15:27
DX: R00.0 Tachycardia, unspecified (principal); R00.2 Palpitations; I10 Essential (primary) hypertension; E78.5 Hyperlipidemia, unspecified; E11.9 Type 2 diabetes mellitus without complications; E03.9 Hypothyroidism, unspecified; I48.91 Unspecified atrial fibrillation; F20.9 Schizophrenia, unspecified; F41.9 Anxiety disorder, unspecified; J45.909 Unspecified asthma, uncomplicated; Z88.8 Allergy status to other drugs, medicaments and biological substances; Z79.899 Other long term (current) drug therapy
CPT/HCPCS: 36415; 71045-TC; 80048-TC; 84443-TC; 84484-TC; 85025-TC; 85378-TC; G0480; J7030

== ENCOUNTER 2022-07-03 10:27 | Inpatient (IN) | payer MEDICARE, OTHER ==
[~2022-07-03] VITALS: Ht 160 cm; Wt 116.6 kg
[~2022-07-03 10:27] MED LIST changes: -ACET-868 PO; -ASCO-352 PO; -BENZ2TAB7 PO; -BISA10SU11 RC; +BUDE10.2 IH; -CHOL100062 PO; +CLOZ25TA4 PO; +DILT-2 PO; +DIVA500T54 PO; -FLUT16SP; +FOLI1TAB26 PO; +HYDR50TA61 PO; +LEVA15HF4 IH; +LIDO30AD10 TP; -MAGN400O6 PO; -METO25TA3 PO; +METO25TA6 PO; -NA P133E RC; -NEOM1OIN10 TP; +POTA10TA10 PO; -ZINC1CAP2 PO
--- NOTE | 2022-07-03 11:35 | NUR ---
RN NOTE RECEIVED VERBAL REPORT FROM CHAPIN LINDA LACKEY
--- NOTE | 2022-07-03 14:00 | NUR ---
WINE MASTER NOTE RECEIVED PATIENT WHO IS A DIRECT ADMIT FROM [facility]. PATIENT ARRIVED ON A GURNEY ACCOMPANIED BY 2 NURSES AND PATIENT ABLE TO AMBULATE TO HER BED FROM THE HALLWAY WITH NO ASSISTANCE. PATIENT ON BED AND COMFORT MEASURES PROVIDED. PATIENT IS ALERT AND ORIENTED X4 ABLE TO MAKE NEEDS KNOWN. PATIENT IS ON ROOM AIR WITH NO SIGN OF RESPIRATORY DISTRESS WITH SOME WHEEZING NOTED. MAINTAINED ON HIGH BACK REST. WITH IV ACCESS ON THE LEFT AC Q22, PATENT AND INTACT. ON NORMAL BODY ALIGNMENT. ENCOURAGED TO DO DEEP BREATHING EXERCISES. DR. WALKER NOTIFIED OF ADMISSION. SEEN BY MED BANNER NURSE. SAFETY MEASURES ENSURED WITH BED ON LOCKED AND LOWEST POSITION, SIDERAILS RAISED AND ALARM ON. CALL LIGHT WITHIN REACH AT ALL TIMES. IN STABLE CONDITION.
[2022-07-03] MEDS ORDERED: MAGNESIUM HYDROXIDE 30 ML UDC PO PRN (14:30)
[2022-07-03] MEDS ORDERED: ALBUTEROL SULFATE 8 GM HFA.AER.AD IH PRN (14:30)
[2022-07-03] MEDS ORDERED: HYDROCODONE/APAP 5/325MG TABLET PO PRN (14:30)
[2022-07-03] MEDS ORDERED: ACETAMINOPHEN 325 MG TABLET PO PRN (14:30)
[2022-07-03] MEDS ORDERED: TEMAZEPAM 7.5 MG CAPSULE PO PRN (14:30)
[2022-07-03] MEDS ORDERED: IV 1/2NS 1000 ML 1,000 ML IV PRN (14:30)
[2022-07-03] MEDS ORDERED: ONDANSETRON HCL/PF 4 MG/2 ML VIAL IVP PRN (14:30)
[2022-07-03] MEDS ORDERED: ALBUTEROL FS 2.5 MG/3 ML VIAL.NEB NEB PRN (14:30)
[2022-07-03] MEDS ORDERED: MAG HYDROX/AL HYDROX/SIMETH 30 ML UDC PO PRN (14:30)
[2022-07-03 15:19] LABS: BASOPHILS % (AUTO) 0.2 % (0.0-2.0); EOSINOPHILS % (AUTO) 0.1 % (0.0-6.0); HEMATOCRIT 36 % (33-45); HEMOGLOBIN 11.4 g/dL (11.5-14.8); LYMPHOCYTES # (AUTO) 1.1 K/uL (0.8-4.8); LYMPHOCYTES % (AUTO) 11.6 % (20.0-44.0); MEAN CORPUSCULAR HGB CONC 31 g/dl (31.0-36.0); MEAN CORPUSCULAR VOLUME 75 fL (82-100); NEUTROPHILS % (AUTO) 77.1 % (43.0-81.0); PLATELET COUNT (AUTO) 313 K/uL (150-450); RED BLOOD CELL COUNT(AUTO) 4.86 MIL/uL (4.0-5.2); WHITE BLOOD COUNT (AUTO) 9.1 K/uL (4.3-11.0)
[2022-07-03] MEDS: LIDOCAINE 5% (PATCH) 1 EA PATCH TP SCH (15:43)
--- NOTE | 2022-07-03 15:45 | NUR ---
ORACLE WMS CONSULTANT NOTE SEEN BY DR. PUENTE IN STABLE CONDITION.
[2022-07-03 15:58] VITALS: BP 125/81
[2022-07-03] MEDS: CEFTRIAXONE 1 G in IV D5W 50 ML IV SCH (16:14)
[2022-07-03 16:15] LABS: CALCIUM, SERUM 8.7 mg/dL (8.5-10.1); CREATININE 1.3 mg/dL (0.6-1.3); POTASSIUM 3.7 mmol/L (3.5-5.1)
[2022-07-03] MEDS: LORAZEPAM 1 MG TABLET PO PRN (16:21)
[2022-07-03] MEDS: BLOOD SUGAR DIAGNOSTIC 1 EACH STRIP IN SCH ×2 (16:48→21:28)
[2022-07-03] MEDS: METFORMIN 500 MG TABLET PO SCH (16:55)
[2022-07-03] MEDS: ENOXAPARIN SODIUM 40 MG/0.4 ML DISP.SYRIN SQ SCH (16:55)
[2022-07-03] MEDS: METOPROLOL TARTRATE 50 MG TABLET PO SCH (16:56)
[2022-07-03] MEDS: BUDESONIDE RESPULE INH 0.5 MG/2 ML AMPUL.NEB NEB SCH (18:00)
[2022-07-03 18:21] LABS: BAND % (MANUAL) 3 % (0.0-5.0); LYMPHOCYTES % (MANUAL) 9 % (16-48); MONOCYTES % (MANUAL) 11 % (0-11.0); NEUTROPHILS % (MANUAL) 77 (42-76)
--- NOTE | 2022-07-03 19:10 | NUR ---
BELLSTAND ATTENDANT CLOSING NOTE PATIENT IS ALERT AND ORIENTED X4 ABLE TO MAKE NEEDS KNOWN. PATIENT IS ON OXYGEN AT 2-3 LPM FOR COMFORT WITH NO SIGN OF RESPIRATORY DISTRESS. MAINTAINED ON HIGH BACK REST. WITH IV ACCESS ON THE LEFT AC Q22 WITH 1/2 NS AT 75ML/HR INFUSING WELL. PATIENT VERBALIZED SHE IS COMFORTABLE AND FEELS MUCH BETTER. SAFETY MEASURES ENSURED WITH BED ON LOCKED AND LOWEST POSITION, SIDERAILS RAISED AND ALARM ON. CALL LIGHT WITHIN REACH AT ALL TIMES. IN STABLE CONDITION. ENDORSED TO NEXT SHIFT FOR CONTINUITY OF CARE.
--- NOTE | 2022-07-03 19:15 | NUR ---
SCRUB NURSE OPENING NOTE RECEIVED PT AWAKE IN BED WATCHING TV AT THIS TIME. A/O X4, ABLE TO MAKE NEEDS KNOWN. ON O2 @ 3 LPM FOR COMFORT WITH NO SIGN OF RESPIRATORY DISTRESS. DENIES PAIN AT THIS TIME. IV ACCESS LAC #22G PATENT AND INTACT, RUNNING 1/2 NS @ 75ML/HR. SAFETY MEASURES IN PLACE: BED LOCKED AND IN LOWEST POSITION, SIDERAILS UP X3, CALL LIGHT AND TRAY TABLE WITHIN REACH. WILL CONTINUE TO MONITOR AND ASSIST.
[2022-07-03] MEDS: ALBUTEROL FS 2.5 MG/3 ML VIAL.NEB NEB SCH (19:30)
--- NOTE | 2022-07-03 19:59 | NUR ---
RT NOTE PATIENT REFUSING TX AT THIS TIME. PRIMARY NURSE IS BEDSIDE AND AWARE. SPO2 97%. EXPLAINED TO PATIENT THE BENEFITS OF TAKING THE BREATHING TX BUT PATIENT STILL REFUSING AT THIS TIME. WILL CONTINUE TO MONITOR PATIENT.
[2022-07-03 20:00] VITALS: BP 140/91
[2022-07-03] MEDS: DIVALPROEX SODIUM 500 MG TABLET.DR PO SCH (21:11)
[2022-07-03] MEDS: CLOZAPINE 100 MG TABLET PO SCH (21:11)
[2022-07-03] MEDS: ATORVASTATIN 10 MG TABLET PO SCH (21:12)
[2022-07-03] MEDS: risperiDONE 1 MG TABLET PO SCH (21:12)
[2022-07-03] MEDS: GABAPENTIN 300 MG CAPSULE PO SCH (21:12)
[2022-07-04] VITALS: BP 150/106
[2022-07-04] MEDS: ALBUTEROL FS 2.5 MG/3 ML VIAL.NEB NEB SCH ×2 (00:53→07:32)
[2022-07-04 04:00] VITALS: BP_SYST 134; BP_SYST 152; BP_DIAS 74; BP_DIAS 77
[2022-07-04 06:14] LABS: BILIRUBIN,URINE NEGATIVE (NEGATIVE); COLOR,URINE YELLOW (YELLOW); LEUKOCYTE ESTERASE ,URINE NEGATIVE (NEGATIVE); NITRITE, URINE NEGATIVE (NEGATIVE); PROTEIN,URINE NEGATIVE (NEGATIVE); UGLUCOSE 1+ mg/dL (NEGATIVE); UROBILINOGEN,URINE 0.2 EU/dL (0.2)
[2022-07-04 06:34] LABS: BACTERIA,URINE Rare /HPF (None Seen); RBC,URINE 0-2 /HPF (0-2); SQUAMOUS EPITHELIAL CELL,UR Few /HPF (None Seen); WBC,URINE 0-2 /HPF (0-3)
[2022-07-04] MEDS: BLOOD SUGAR DIAGNOSTIC 1 EACH STRIP IN SCH ×4 (06:37→22:07)
[2022-07-04 06:40] LABS: THYROID STIMULATING HORMONE 2.104 uIU/mL (0.358-3.74)
[2022-07-04 06:41] LABS: BASOPHILS % (AUTO) 0.5 % (0.0-2.0); CALCIUM, SERUM 8.7 mg/dL (8.5-10.1); CREATININE 1.1 mg/dL (0.6-1.3); EOSINOPHILS % (AUTO) 0.9 % (0.0-6.0); HEMATOCRIT 34 % (33-45); HEMOGLOBIN 10.8 g/dL (11.5-14.8); LYMPHOCYTES # (AUTO) 1.4 K/uL (0.8-4.8); LYMPHOCYTES % (AUTO) 16.5 % (20.0-44.0); MEAN CORPUSCULAR HGB CONC 32 g/dl (31.0-36.0); MEAN CORPUSCULAR VOLUME 76 fL (82-100); MONOCYTES # (AUTO) 1.3 K/uL (0.1-1.30); NEUTROPHILS # (AUTO) 5.4 K/uL (1.8-8.9); NEUTROPHILS % (AUTO) 66.1 % (43.0-81.0); PHOSPHORUS 4.3 mg/dL (2.5-4.9); PLATELET COUNT (AUTO) 270 K/uL (150-450); POTASSIUM 3.8 mmol/L (3.5-5.1); RED BLOOD CELL COUNT(AUTO) 4.45 MIL/uL (4.0-5.2); WHITE BLOOD COUNT (AUTO) 8.2 K/uL (4.3-11.0)
--- NOTE | 2022-07-04 06:55 | NUR ---
INVASIVE CARDIOLOGIST CLOSING NOTES PT AWAKE IN BED. A/O X4, ABLE TO MAKE NEEDS KNOWN. STABLE ON O2 @ 3 LPM FOR COMFORT WITH NO SIGN OF RESPIRATORY DISTRESS. DENIES PAIN AT THIS TIME. ON TELE MONITOR READING SINUS TACH 107. IV ACCESS LAC #22G PATENT AND INTACT, RUNNING 1/2 NS @ 75ML/HR. ALL CARE PROVIDED AND MEDICATIONS TOLERATED WELL. SAFETY MEASURES MAINTAINED: BED LOCKED AND IN LOWEST POSITION, SIDERAILS UP X3, CALL LIGHT AND TRAY TABLE WITHIN REACH. WILL ENDORSE REEMA TO DAY SHIFT NURSE.
--- NOTE | 2022-07-04 07:20 | NUR ---
TON CONTAINER SHIPPER OPENING NOTES RECEIVED PT IN BED ASLEEP BUT EASY TO AROUSE AND RESPONSIVE. PATIENT IS A/O X 4 AND ABLE TO RELAY HER NEEDS. STABLE ON O2 @ 1 LPM FOR COMFORT. DENIES PAIN AT THIS TIME. ON TELE MONITOR READING SINUS TACH 140. IV ACCESS LAC #22G PATENT AND INTACT, RUNNING 1/2 NS @ 75ML/HR. SAFETY MEASURES GIVEN WITH BED ON LOCKED AND LOW POSITION. CALL LIGHT ON REACH. WILL CONTINUE WITH THE PLAN OF CARE. Addendum: 07/04/22 at 1910 by LANDON ARRIAGA RN 1/2 NS @ 75ML/HR DISCONTINUED DURING THE SHIFT DUE TO FLUID RETENTION
[2022-07-04] MEDS ORDERED: PANTOPRAZOLE 40 MG TABLET.DR PO SCH (07:30)
[2022-07-04] MEDS: BUDESONIDE RESPULE INH 0.5 MG/2 ML AMPUL.NEB NEB SCH ×2 (07:32→15:22)
[2022-07-04 08:00] VITALS: BP 127/66
[2022-07-04] MEDS: LEVOTHYROXINE SODIUM 75 MCG TABLET PO SCH (08:15)
[2022-07-04] MEDS: PANTOPRAZOLE 40 MG TABLET.DR PO SCH (08:16)
[2022-07-04] MEDS: LIDOCAINE 5% (PATCH) 1 EA PATCH TP SCH (09:24)
[2022-07-04] MEDS: CLOZAPINE 25 MG TABLET PO SCH (09:24)
[2022-07-04] MEDS: POTASSIUM CHLORIDE 10 MEQ TABLET.SA PO SCH (09:25)
[2022-07-04] MEDS: DIVALPROEX SODIUM 500 MG TABLET.DR PO SCH ×2 (09:25→21:55)
[2022-07-04] MEDS: METFORMIN 500 MG TABLET PO SCH ×2 (09:25→17:59)
[2022-07-04] MEDS: METOPROLOL TARTRATE 50 MG TABLET PO SCH ×2 (09:28→17:55)
[2022-07-04] MEDS: IPRATROPIUM NEB FS 0.5 MG/2.5 ML AMPUL.NEB NEB SCH ×3 (10:29→23:11)
[2022-07-04] MEDS: LEVALBUTEROL HCL NEB 1.25 MG/0.5 ML VIAL.NEB NEB SCH ×3 (10:29→23:11)
[2022-07-04] MEDS ORDERED: LEVALBUTEROL HCL NEB 1.25 MG/0.5 ML VIAL.NEB NEB PRN (10:30)
[2022-07-04] MEDS ORDERED: IPRATROPIUM NEB FS 0.5 MG/2.5 ML AMPUL.NEB NEB PRN (10:30)
[2022-07-04] MEDS: AZITHROMYCIN 250 MG TABLET PO SCH (11:07)
[2022-07-04 12:45] LABS: BAND % (MANUAL) 2 % (0.0-5.0); LYMPHOCYTES % (MANUAL) 9 % (16-48); MONOCYTES % (MANUAL) 13 % (0-11.0); NEUTROPHILS % (MANUAL) 76 (42-76)
--- NOTE | 2022-07-04 14:00 | NUR ---
RECONNAISSANCE MAN NOTE SEEN BY DR. TURNER. IN STABLE CONDITION.
[2022-07-04] MEDS: INSULIN GLARGINE, 100 UNIT/ML CARTRIDGE SQ SCH (14:04)
[2022-07-04 16:12] VITALS: BP 118/72
[2022-07-04] MEDS: CEFTRIAXONE 1 G in IV D5W 50 ML IV SCH (16:17)
[2022-07-04] MEDS: ENOXAPARIN SODIUM 40 MG/0.4 ML DISP.SYRIN SQ SCH (17:51)
--- NOTE | 2022-07-04 19:04 | NUR ---
CARE TRANSITION MANAGER CLOSING NOTES PATIENT IN BED AWAKE, ALERT AND ORIENTED. PATIENT IS A/O X 4 AND ABLE TO RELAY HER NEEDS. STABLE ON O2 @ 1 LPM FOR COMFORT. DENIES PAIN AT THIS TIME. ON TELE MONITOR READING SINUS TACH 113. PATIENT ON SALINE LOCK AT THE RIGHT HAND #22G, PATENT AND INTACT. SAFETY MEASURES GIVEN WITH BED ON LOCKED AND LOW POSITION. CALL LIGHT ON REACH. ENDORSED TO NEXT SHIFT FOR CONTINUITY OF CARE.
--- NOTE | 2022-07-04 19:15 | NUR ---
INVENTORY REPRESENTATIVE OPENING NOTES RECEIVED PT IN BED AWAKE. A/O X 4 AND ABLE TO RELAY HER NEEDS. ON O2 @ 1 LPM FOR COMFORT. DENIES PAIN AT THIS TIME. ON TELE MONITOR READING SINUS TACH 113. IV RIGHT HAND #22G SL, PATENT AND INTACT. SAFETY MEASURES IN PLACE: BED ON LOCKED AND LOW POSITION, SIDE RAILS UP X3, CALL LIGHT WITHIN REACH. WILL CONTINUE TO MONITOR AND ASSIST.
[2022-07-04 20:00] VITALS: BP 132/48
[2022-07-04] MEDS: ATORVASTATIN 10 MG TABLET PO SCH (21:55)
[2022-07-04] MEDS: risperiDONE 1 MG TABLET PO SCH (21:56)
[2022-07-04] MEDS: CLOZAPINE 100 MG TABLET PO SCH (21:56)
[2022-07-04] MEDS: GABAPENTIN 300 MG CAPSULE PO SCH (21:56)
[2022-07-05] VITALS: BP 119/83
[2022-07-05 04:54] VITALS: BP 109/57
[2022-07-05 05:56] LABS: BASOPHILS % (AUTO) 0.3 % (0.0-2.0); EOSINOPHILS % (AUTO) 3.2 % (0.0-6.0); HEMATOCRIT 34 % (33-45); HEMOGLOBIN 10.8 g/dL (11.5-14.8); LYMPHOCYTES # (AUTO) 1.7 K/uL (0.8-4.8); LYMPHOCYTES % (AUTO) 26.3 % (20.0-44.0); MEAN CORPUSCULAR HGB CONC 32 g/dl (31.0-36.0); MEAN CORPUSCULAR VOLUME 76 fL (82-100); MONOCYTES # (AUTO) 0.8 K/uL (0.1-1.30); NEUTROPHILS # (AUTO) 3.7 K/uL (1.8-8.9); NEUTROPHILS % (AUTO) 57.2 % (43.0-81.0); PLATELET COUNT (AUTO) 255 K/uL (150-450); RED BLOOD CELL COUNT(AUTO) 4.47 MIL/uL (4.0-5.2); WHITE BLOOD COUNT (AUTO) 6.5 K/uL (4.3-11.0)
[2022-07-05 06:09] LABS: CALCIUM, SERUM 8.9 mg/dL (8.5-10.1); CREATININE 0.9 mg/dL (0.6-1.3); POTASSIUM 3.6 mmol/L (3.5-5.1)
--- NOTE | 2022-07-05 07:00 | NUR ---
ANIMAL ASSISTANT CLOSING NOTES PT IN BED SLEEPING AT THSI TIME. A/O X 4 AND ABLE TO RELAY HER NEEDS. STABLE ON O2 @ 1 LPM FOR COMFORT. DENIES PAIN AT THIS TIME. ON TELE MONITOR READING SINUS TACH 108. IV RIGHT HAND #22G SL, PATENT AND INTACT. ALL CARE PROVIDED AND MEDICATIONS TOLERATED WELL. SAFETY MEASURES MAINTAINED: BED ON LOCKED AND LOW POSITION, SIDE RAILS UP X3, CALL LIGHT WITHIN REACH. WILL ENDORSE REEMA TO DAY SHIFT NURSE.
[2022-07-05] MEDS: BLOOD SUGAR DIAGNOSTIC 1 EACH STRIP IN SCH ×5 (07:45→22:20)
[2022-07-05 08:00] VITALS: BP 128/86
--- NOTE | 2022-07-05 08:10 | NUR ---
RN NOTE- PT IN BED ASLEEP, EASILY AWAKENED, . A/O X 4 STABLE ON O2 @ 1 LPM FOR COMFORT. DENIES PAIN AT THIS TIME. ON TELE MONITOR READING SINUS TACH 100. IV RIGHT HAND #22G SL, PATENT AND INTACT. ALL CARE PROVIDED AND MEDICATIONS TOLERATED WELL. SAFETY MEASURES MAINTAINED: BED ON LOCKED AND LOW POSITION, SIDE RAILS UP X3, CALL LIGHT WITHIN REACH. MONITOR / ASSIST
[2022-07-05] MEDS: LEVALBUTEROL HCL NEB 1.25 MG/0.5 ML VIAL.NEB NEB SCH ×2 (08:18→16:44)
[2022-07-05] MEDS: BUDESONIDE RESPULE INH 0.5 MG/2 ML AMPUL.NEB NEB SCH ×2 (08:18→16:44)
[2022-07-05] MEDS: IPRATROPIUM NEB FS 0.5 MG/2.5 ML AMPUL.NEB NEB SCH ×2 (08:18→16:44)
[2022-07-05] MEDS: LEVOTHYROXINE SODIUM 75 MCG TABLET PO SCH (08:42)
[2022-07-05] MEDS: DIVALPROEX SODIUM 500 MG TABLET.DR PO SCH ×2 (08:42→20:56)
[2022-07-05] MEDS: CLOZAPINE 25 MG TABLET PO SCH (08:43)
[2022-07-05] MEDS: PANTOPRAZOLE 40 MG TABLET.DR PO SCH (08:44)
[2022-07-05] MEDS: METOPROLOL TARTRATE 50 MG TABLET PO SCH ×2 (08:44→16:13)
[2022-07-05] MEDS: METFORMIN 500 MG TABLET PO SCH ×2 (08:44→16:14)
[2022-07-05] MEDS: POTASSIUM CHLORIDE 10 MEQ TABLET.SA PO SCH (08:45)
[2022-07-05] MEDS: LIDOCAINE 5% (PATCH) 1 EA PATCH TP SCH (08:46)
[2022-07-05] MEDS: INSULIN GLARGINE, 100 UNIT/ML CARTRIDGE SQ SCH (08:48)
[2022-07-05] MEDS ORDERED: POTASSIUM CHLORIDE 20 MEQ TAB.PRT.SR PO ONE (10:00)
[2022-07-05] MEDS: methylPREDNISolone SOD SUCC 40 MG/ML VIAL IV SCH ×3 (10:29→20:56)
[2022-07-05] MEDS: INSULIN NPH, HUMAN ISOPHANE 100 UNIT/ML VIAL SQ SCH ×2 (10:30→17:03)
[2022-07-05] MEDS: AZITHROMYCIN 250 MG TABLET PO SCH (10:31)
[2022-07-05 12:00] VITALS: BP 102/71
[2022-07-05] MEDS: CEFTRIAXONE 1 G in IV D5W 50 ML IV SCH (15:24)
[2022-07-05] MEDS: ENOXAPARIN SODIUM 40 MG/0.4 ML DISP.SYRIN SQ SCH (16:14)
--- NOTE | 2022-07-05 18:48 | NUR ---
EXTENSION FORESTER CLOSING NOTES PT IN BED AND WATCHING TV AT THSI TIME. A/O X 4 AND ABLE TO RELAY HER NEEDS. STABLE ON O2 @ 1 LPM FOR COMFORT. DENIES PAIN AT THIS TIME. ON TELE MONITOR READING SINUS TACH 101. IV RIGHT HAND #22G, PATENT AND INTACT. ALL CARE PROVIDED AND MEDICATIONS TOLERATED WELL. SAFETY MEASURES MAINTAINED: BED IN LOCKED AND LOWEST POSITION, SIDE RAILS UP X2, CALL LIGHT AND TRAY WITHIN REACH. WILL ENDORSE REEMA TO CUTTING AND SPLICING SUPERVISOR NURSE.
[2022-07-05 20:00] VITALS: BP 117/75
--- NOTE | 2022-07-05 20:00 | NUR ---
INDUSTRIAL CONTROLLER OPENING NOTE PATIENT AWAKE IN BED, ALERT/ORIENTED X 4, PT ABLE TO MAKE NEEDS KNOWN. PATIENT STABLE ON 1 LPM OF O2, NO S/S OF DISTRESS OR SOB NOTED, BREATHING EVEN AND UNLABORED. PATIENT ON EXTERNAL PROPERTY UNDERWRITER READING SINUS RHYTHM, HR: 94. IV ACCESS ON RIGHT HAND #22G INTACT AND SALINE LOCKED. PATIENT ABLE TO USE BSC WITH ASSIST. SAFETY MEASURES IN PLACE: CALL LIGHT WITHIN REACH, SIDE RAILS UP X 2, BED LOCKED IN LOWEST POSITION, BED ALARM ON. WILL CONTINUE TO MONITOR PATIENT
[2022-07-05] MEDS: CLOZAPINE 100 MG TABLET PO SCH (21:05)
[2022-07-05] MEDS: ATORVASTATIN 10 MG TABLET PO SCH (22:21)
[2022-07-05] MEDS: risperiDONE 1 MG TABLET PO SCH (22:21)
[2022-07-05] MEDS: GABAPENTIN 300 MG CAPSULE PO SCH (22:21)
--- NOTE | 2022-07-05 22:38 | NUR ---
SECTION BEAMER NOTE PATIENT HAS ACCU CHECKS ACHS BUT NO ORDER FOR SLIDING SCALE INSULIN. CONTACTED HOME STAGING SPECIALIST MD JOMAR RO WITH ORDER FOR MILD SLIDING SCALE INSULIN. ORDER VERIFIED AND CARRIED OUT Addendum: 07/06/22 at 0500 by GRACIE HAYWARD RN PATIENT HAS SCHEDULED INSULIN LANTUS 10 UNITS AND NOVALIN N 8 UNITS AT 9 AM BUT NO INSULIN FOR HS, NOTIFIED
[2022-07-05] MEDS: INSULIN REGULAR, HUMAN 100 UNIT/ML 3 ML VIAL SQ PRN (22:55)
[2022-07-06] MEDS: IPRATROPIUM NEB FS 0.5 MG/2.5 ML AMPUL.NEB NEB SCH ×3 (00:09→16:38)
[2022-07-06] MEDS: LEVALBUTEROL HCL NEB 1.25 MG/0.5 ML VIAL.NEB NEB SCH ×3 (00:09→16:31)
[2022-07-06 04:00] VITALS: BP 138/78
--- NOTE | 2022-07-06 04:57 | NUR ---
PATIENT HAS SCHEDULED INSULIN LANTUS 10 UNITS AND NOVALIN N 8 UNITS AT 9 AM BUT NO INSULIN FOR HS Addendum: 07/06/22 at 0459 by GRACIE HAYWARD RN DISREGARD
[2022-07-06] MEDS: methylPREDNISolone SOD SUCC 40 MG/ML VIAL IV SCH ×2 (05:26→13:59)
--- NOTE | 2022-07-06 06:21 | NUR ---
INTERNAL SALESPERSON CLOSING NOTE PATIENT AWAKE IN BED, ALERT/ORIENTED X 4, PT ABLE TO MAKE NEEDS KNOWN. PATIENT STABLE ON 2 LPM OF O2, NO S/S OF DISTRESS OR SOB NOTED, BREATHING EVEN AND UNLABORED. PATIENT ON EXTERNAL STREET INSPECTOR READING SINUS RHYTHM/SINUS TACHYCARDIA, HR: 102. IV ACCESS ON RIGHT HAND #22G INTACT AND SALINE LOCKED. NO SIGNIFICANT CHANGES THIS SHIFT, PT SLEPT WELL THROUGH THE NIGHT, MEDICATIONS GIVEN ORDERED, PT NEEDS MET THROUGHOUT SHIFT. SAFETY MEASURES IN PLACE: CALL LIGHT WITHIN REACH, SIDE RAILS UP X 2, BED LOCKED IN LOWEST POSITION, BED ALARM ON. WILL ENDORSE TO DAYSHIFT RN FOR CONTINUITY OF CARE
[2022-07-06] MEDS: BLOOD SUGAR DIAGNOSTIC 1 EACH STRIP IN SCH ×3 (06:33→17:09)
[2022-07-06] MEDS: INSULIN REGULAR, HUMAN 100 UNIT/ML 3 ML VIAL SQ PRN ×3 (06:34→18:00)
--- NOTE | 2022-07-06 07:25 | NUR ---
ms rn received on bed, awake,alert, oriented x4, not in any form of distress, respirations even and unlabored ,no sob noted, denies pain at this time, will monitor patient.
[2022-07-06 08:14] VITALS: BP 114/79
[2022-07-06] MEDS: DIVALPROEX SODIUM 500 MG TABLET.DR PO SCH (08:47)
[2022-07-06] MEDS: PANTOPRAZOLE 40 MG TABLET.DR PO SCH (08:47)
[2022-07-06] MEDS: LEVOTHYROXINE SODIUM 75 MCG TABLET PO SCH (08:47)
[2022-07-06] MEDS: CLOZAPINE 25 MG TABLET PO SCH (08:48)
[2022-07-06] MEDS: METFORMIN 500 MG TABLET PO SCH ×2 (08:48→17:15)
[2022-07-06] MEDS: POTASSIUM CHLORIDE 10 MEQ TABLET.SA PO SCH (08:48)
[2022-07-06] MEDS: METOPROLOL TARTRATE 50 MG TABLET PO SCH ×2 (08:53→17:16)
[2022-07-06] MEDS: LIDOCAINE 5% (PATCH) 1 EA PATCH TP SCH ×2 (08:56→09:00)
--- NOTE | 2022-07-06 09:00 | NUR ---
ms ordoñez breakfast served,due meds given tolerated well, blood sugar monitored w/ coiverage given, all needs attended.
[2022-07-06] MEDS: INSULIN NPH, HUMAN ISOPHANE 100 UNIT/ML VIAL SQ SCH ×2 (09:26→18:00)
[2022-07-06] MEDS: INSULIN GLARGINE, 100 UNIT/ML CARTRIDGE SQ SCH (09:29)
[2022-07-06] MEDS: BUDESONIDE RESPULE INH 0.5 MG/2 ML AMPUL.NEB NEB SCH ×2 (10:02→16:38)
[2022-07-06] MEDS: AZITHROMYCIN 250 MG TABLET PO SCH (11:27)
[2022-07-06 12:18] VITALS: BP 124/78
[2022-07-06 14:33] LABS: BASOPHILS % (AUTO) 0.1 % (0.0-2.0); HEMATOCRIT 37 % (33-45); HEMOGLOBIN 11.2 g/dL (11.5-14.8); LYMPHOCYTES # (AUTO) 1.3 K/uL (0.8-4.8); LYMPHOCYTES % (AUTO) 9.2 % (20.0-44.0); MEAN CORPUSCULAR HGB CONC 31 g/dl (31.0-36.0); MEAN CORPUSCULAR VOLUME 77 fL (82-100); MONOCYTES # (AUTO) 0.8 K/uL (0.1-1.30); MONOCYTES % (AUTO) 5.3 % (2.0-12.0); NEUTROPHILS # (AUTO) 12.4 K/uL (1.8-8.9); NEUTROPHILS % (AUTO) 85.4 % (43.0-81.0); PLATELET COUNT (AUTO) 304 K/uL (150-450); RED BLOOD CELL COUNT(AUTO) 4.75 MIL/uL (4.0-5.2); WHITE BLOOD COUNT (AUTO) 14.5 K/uL (4.3-11.0)
[2022-07-06 15:12] LABS: CALCIUM, SERUM 9.7 mg/dL (8.5-10.1); CREATININE 1.3 mg/dL (0.6-1.3); POTASSIUM 4.6 mmol/L (3.5-5.1)
--- NOTE | 2022-07-06 15:30 | NUR ---
ms rn dr harmon seen patient w/ order to go home today,patient is aware.
[2022-07-06] MEDS: CEFTRIAXONE 1 G in IV D5W 50 ML IV SCH (16:00)
[2022-07-06] MEDS: ENOXAPARIN SODIUM 40 MG/0.4 ML DISP.SYRIN SQ SCH (17:00)
[2022-07-06] MEDS: LORAZEPAM 1 MG TABLET PO PRN (17:15)
[2022-07-06 17:16] VITALS: BP 124/78
--- NOTE | 2022-07-06 18:00 | NUR ---
ms rn case manager instructions given, patient went to boarding care via ambulance/transportation.
[2022-07-06 19:16] LABS: BAND % (MANUAL) 3 % (0.0-5.0); LYMPHOCYTES % (MANUAL) 9 % (16-48); MONOCYTES % (MANUAL) 2 % (0-11.0); NEUTROPHILS % (MANUAL) 86 (42-76)
== END 2022-07-06 17:35 | disposition home or self-care (01) | DRG 872 ==
LOC: TELE 13:07
PROVIDERS: ADMIT Internal Medicine; ATTEND Internal Medicine
DX: A41.9 Sepsis, unspecified organism (principal); N39.0 Urinary tract infection, site not specified; Z68.42 Body mass index [BMI] 45.0-49.9, adult; I48.91 Unspecified atrial fibrillation; J20.9 Acute bronchitis, unspecified; D50.9 Iron deficiency anemia, unspecified; J45.909 Unspecified asthma, uncomplicated; E11.65 Type 2 diabetes mellitus with hyperglycemia; G47.00 Insomnia, unspecified; E66.01 Morbid (severe) obesity due to excess calories; G47.33 Obstructive sleep apnea (adult) (pediatric); I10 Essential (primary) hypertension; R00.0 Tachycardia, unspecified; K21.9 Gastro-esophageal reflux disease without esophagitis; E78.5 Hyperlipidemia, unspecified; F25.9 Schizoaffective disorder, unspecified; F41.0 Panic disorder [episodic paroxysmal anxiety]
CPT/HCPCS: 36415; 80048-TC; 80061-TC; 81001; 82962-TC; 83540-TC; 83735-TC; 84100-TC; 84443-TC; 85025-TC; 87040-TC; 87081-TC; 87086-TC; 94799-TC; 97112-TC; 97116-TC; 97530-TC; G0378; J0696; J1650; J1815; J2920; J3490; J7060

== ENCOUNTER 2023-03-02 11:06 | Inpatient (IN) | payer MEDICARE, OTHER ==
[~2023-03-02] VITALS: Ht 160 cm; Wt 102.5 kg
[~2023-03-02 11:06] MED LIST changes: -DILT-2 PO; +DORZ10DR10 EACHEYE; -HYDR50TA61 PO; -LEVA15HF4 IH; -LIDO30AD10 TP; -RISP0.2515 PO; +SERT100T12 PO; -TEMA7.5C12 PO
[2023-03-02 11:48] LABS: BASOPHILS % (AUTO) 0.4 % (0.0-2.0); EOSINOPHILS # (AUTO) 0.2 K/uL (0.0-0.7); EOSINOPHILS % (AUTO) 1.5 % (0.0-6.0); HEMATOCRIT 39 % (33-45); HEMOGLOBIN 12.5 g/dL (11.5-14.8); LYMPHOCYTES # (AUTO) 2.3 K/uL (0.8-4.8); LYMPHOCYTES % (AUTO) 21.3 % (20.0-44.0); MEAN CORPUSCULAR HEMOGLOBIN 27 PG (26.0-33.0); MEAN CORPUSCULAR HGB CONC 32 g/dl (31.0-36.0); MEAN CORPUSCULAR VOLUME 83 fL (82-100); MONOCYTES % (AUTO) 9.2 % (2.0-12.0); NEUTROPHILS # (AUTO) 7.3 K/uL (1.8-8.9); NEUTROPHILS % (AUTO) 67.6 % (43.0-81.0); PLATELET COUNT (AUTO) 304 K/uL (150-450); RED BLOOD CELL COUNT(AUTO) 4.69 MIL/uL (4.0-5.2); RED CELL DISTRIBUTION WIDTH 15.4 % (11.5-15.0); WHITE BLOOD COUNT (AUTO) 10.7 K/uL (4.3-11.0)
[2023-03-02] MEDS ORDERED: GABA-532 PO (12:00)
[2023-03-02] MEDS ORDERED: INSU100V7 SQ (12:00)
[2023-03-02] MEDS ORDERED: METF-440 PO (12:00)
[2023-03-02] MEDS ORDERED: LATA2.5D15 EACHEYE (12:00)
[2023-03-02] MEDS ORDERED: PANT40TA2 PO (12:00)
[2023-03-02] MEDS ORDERED: ALBU18HF2 IH (12:00)
[2023-03-02] MEDS ORDERED: BUDE10.2 IH (12:00)
[2023-03-02] MEDS ORDERED: METO25TA3 PO (12:00)
[2023-03-02] MEDS ORDERED: NON-FORMULARY PO (12:00)
[2023-03-02] MEDS ORDERED: TEMA15CA PO (12:00)
[2023-03-02] MEDS ORDERED: ONDA4TAB11 SL (12:00)
[2023-03-02] MEDS ORDERED: ATOR10TA PO (12:00)
[2023-03-02] MEDS ORDERED: DIVA-78 PO (12:00)
[2023-03-02] MEDS ORDERED: CHOL4PAC9 PO (12:00)
[2023-03-02] MEDS ORDERED: HYDR50CA5 PO (12:00)
[2023-03-02] MEDS ORDERED: LIDO30AD10 TP (12:00)
[2023-03-02] MEDS ORDERED: FOLI1TAB24 PO (12:00)
[2023-03-02] MEDS ORDERED: LEVO25TA7 PO (12:00)
[2023-03-02] MEDS ORDERED: PROP20TA7 PO (12:00)
[2023-03-02] MEDS ORDERED: CLOZ100T32 PO ×2 (12:00)
[2023-03-02] MEDS ORDERED: SEMA0.25 SQ (12:00)
[2023-03-02] MEDS ORDERED: TRAZ-182 PO (12:00)
[2023-03-02] MEDS ORDERED: METO25TA20 PO (12:00)
[2023-03-02] MEDS ORDERED: OLOP2.5D12 EACHEYE (12:00)
[2023-03-02 12:02] LABS: CALCIUM, SERUM 9.4 mg/dL (8.5-10.1); CARBON DIOXIDE 28 mmol/L (21-32); CHLORIDE 103 mmol/L (98-107); GLUCOSE 131 mg/dL (74-106); POTASSIUM 4.7 mmol/L (3.5-5.1); SODIUM SERUM 138 mmol/L (136-145); UREA NITROGEN, BLOOD 13 mg/dL (7-18)
[2023-03-02 12:17] LABS: ALANINE AMINOTRANSFERASE 46 U/L (12-78); ALBUMIN 3.6 g/dL (3.4-5.0); ALCOHOL, BLOOD < 3 mg/dL (0-10); ALKALINE PHOSPHATASE 104 U/L (46-116); ASPARTATE AMINOTRANSFERASE 23 U/L (15-37); BILIRUBIN,DIRECT 0.1 mg/dL (0.0-0.2); BILIRUBIN,TOTAL 0.3 mg/dL (0.2-1.0); TOTAL PROTEIN, SERUM 7.6 g/dL (6.4-8.2)
[2023-03-02 12:19] LABS: APPEARANCE,URINE CLOUDY (CLEAR); BILIRUBIN,URINE NEGATIVE (NEGATIVE); BLOOD, URINE NEGATIVE Ery/uL (NEGATIVE); COLOR,URINE YELLOW (YELLOW); KETONES,URINE TRACE mg/dL (NEGATIVE); LEUKOCYTE ESTERASE ,URINE 3+ (NEGATIVE); NITRITE, URINE NEGATIVE (NEGATIVE); PH,URINE 6.5 (5.0-8.0); PROTEIN,URINE NEGATIVE (NEGATIVE); UGLUCOSE NEGATIVE (NEGATIVE); UROBILINOGEN,URINE 0.2 EU/dL (0.2)
[2023-03-02 12:21] LABS: ACETAMINOPHEN <10 ug/ml (10-30); SALICYLATE < 2.3 mg/dL (2.8-20.0)
[2023-03-02 12:22] LABS: ADD URINE CULTURE YES; BACTERIA,URINE Rare /HPF (None Seen); RBC,URINE 0-2 /HPF (0-2); SQUAMOUS EPITHELIAL CELL,UR Few /HPF (None Seen)
[2023-03-02 12:34] LABS: AMPHETAMINE, URINE NEGATIVE (NEGATIVE); BARBITURATE, URINE NEGATIVE (NEGATIVE); BENZODIAZEPINE, URINE NEGATIVE (NEGATIVE); CANNABINOID, URINE NEGATIVE (NEGATIVE); COCCAINE, URINE NEGATIVE (NEGATIVE); OPIATE, URINE NEGATIVE (NEGATIVE); PHENCYCLIDINE SCREEN,URINE NEGATIVE (NEGATIVE)
[2023-03-02] MEDS ORDERED: CEPHALEXIN MONOHYDRATE 500 MG CAPSULE PO ONE ×2 (13:18→13:30)
[2023-03-02] MEDS ORDERED: MAG HYDROX/AL HYDROX/SIMETH 30 ML UDC PO PRN (15:30)
[2023-03-02] MEDS ORDERED: BLOOD SUGAR DIAGNOSTIC 1 EACH STRIP IN ONE (15:30)
[2023-03-02] MEDS ORDERED: MAGNESIUM HYDROXIDE 30 ML UDC PO PRN (15:30)
[2023-03-02 16:00] VITALS: BP 131/80; TEMP 98.3; O2SAT 93
[2023-03-02] MEDS ORDERED: ONDANSETRON 4 MG TAB.RAPDIS SL PRN (17:30)
[2023-03-02] MEDS ORDERED: *INSULIN REGULAR(HUMULIN R)HUM 100 UNIT/ML VIAL SQ PRN (17:30)
[2023-03-02] MEDS ORDERED: DEXTROSE 50%-WATER 50 ML DISP.SYRIN IV PRN (17:30)
[2023-03-02] MEDS ORDERED: INSULIN REGULAR, HUMAN 100 UNIT/ML 3 ML VIAL SQ PRN (17:30)
[2023-03-02] MEDS: ALBUTEROL FS 2.5 MG/0.5 ML VIAL.NEB NEB SCH (19:30)
[2023-03-02] MEDS: BUDESONIDE RESPULE INH 0.5 MG/2 ML AMPUL.NEB NEB SCH (19:30)
[2023-03-02] MEDS ORDERED: ALBUTEROL FS 2.5 MG/0.5 ML VIAL.NEB IH PRN (19:30)
[2023-03-02] MEDS: CEPHALEXIN MONOHYDRATE 250 MG CAPSULE PO SCH (20:04)
[2023-03-02] MEDS: clonazePAM 0.5 MG TABLET PO PRN (21:14)
[2023-03-02] MEDS: ATORVASTATIN 10 MG TABLET PO SCH (21:28)
[2023-03-02] MEDS: GABAPENTIN 300 MG CAPSULE PO SCH (21:28)
[2023-03-02] MEDS: LATANOPROST EYE DROP 0.005% 2.5 ML BOTTLE EACHEYE SCH (21:29)
[2023-03-02] MEDS: BLOOD SUGAR DIAGNOSTIC 1 EACH STRIP VI SCH ×2 (21:41→21:45)
[2023-03-02] MEDS: ACETAMINOPHEN 325 MG TABLET PO PRN (22:52)
[2023-03-03] MEDS: CEPHALEXIN MONOHYDRATE 250 MG CAPSULE PO SCH ×5 (00:07→23:46)
[2023-03-03] MEDS: ALBUTEROL FS 2.5 MG/0.5 ML VIAL.NEB NEB SCH ×3 (01:30→12:49)
[2023-03-03] MEDS: BUDESONIDE RESPULE INH 0.5 MG/2 ML AMPUL.NEB NEB SCH ×2 (07:26→19:14)
[2023-03-03] MEDS: BLOOD SUGAR DIAGNOSTIC 1 EACH STRIP VI SCH ×2 (07:30→12:00)
[2023-03-03 07:59] LABS: CHOLESTEROL 196 mg/dL (<200); HDL CHOLESTEROL 43 mg/dL (40-60); LDL 126 mg/dL (0-99); TRIGLYCERIDES 209 mg/dL (30-150)
[2023-03-03 08:00] VITALS: BP 148/96; TEMP 97.5; O2SAT 95
[2023-03-03 08:01] LABS: ALBUMIN 3.2 g/dL (3.4-5.0); BILIRUBIN,TOTAL 0.2 mg/dL (0.2-1.0); CALCIUM, SERUM 8.8 mg/dL (8.5-10.1); POTASSIUM 4.3 mmol/L (3.5-5.1); TOTAL PROTEIN, SERUM 7.2 g/dL (6.4-8.2)
[2023-03-03] MEDS: LEVOTHYROXINE SODIUM 25 MCG TABLET PO SCH (08:34)
[2023-03-03] MEDS: PANTOPRAZOLE 40 MG TABLET.DR PO SCH (08:34)
[2023-03-03] MEDS: METFORMIN 500 MG TABLET PO SCH ×2 (08:34→17:00)
[2023-03-03] MEDS: DORZOLAMIDE OPTH 2% 10 ML BOTTLE EACHEYE SCH ×2 (08:35→17:00)
[2023-03-03] MEDS ORDERED: FOLIC ACID PO SCH (09:00)
[2023-03-03] MEDS ORDERED: LUT PO SCH (09:00)
[2023-03-03] MEDS ORDERED: MV FE OTHER MIN PO SCH (09:00)
[2023-03-03] MEDS: CHOLESTYRAMINE/ASPARTAME 4 G/PKT PACKET PO SCH (09:00)
[2023-03-03] MEDS ORDERED: [UNRECOGNIZED DRUG - OTHER] PO SCH (09:00)
[2023-03-03] MEDS ORDERED: TRAZODONE 50 MG TABLET PO PRN (12:00)
[2023-03-03] MEDS: DIVALPROEX SODIUM 500 MG TABLET.DR PO SCH ×2 (12:28→16:59)
[2023-03-03] MEDS: CLOZAPINE 25 MG TABLET PO SCH (12:28)
[2023-03-03] MEDS ORDERED: ALBUTEROL FS 2.5 MG/0.5 ML VIAL.NEB NEB PRN (14:30)
[2023-03-03 16:00] VITALS: BP 100/70; TEMP 97.6; O2SAT 99
[2023-03-03 16:36] LABS: CREATININE 0.9 mg/dL (0.6-1.3)
[2023-03-03 20:00] VITALS: BP 115/57; TEMP 98.3; O2SAT 97
[2023-03-03] MEDS: clonazePAM 0.5 MG TABLET PO PRN (20:21)
[2023-03-03] MEDS: ATORVASTATIN 10 MG TABLET PO SCH (21:18)
[2023-03-03] MEDS: CLOZAPINE 100 MG TABLET PO SCH (21:18)
[2023-03-03] MEDS: LATANOPROST EYE DROP 0.005% 2.5 ML BOTTLE EACHEYE SCH (21:18)
[2023-03-03] MEDS: GABAPENTIN 300 MG CAPSULE PO SCH (21:18)
[2023-03-03] MEDS: TEMAZEPAM 7.5 MG CAPSULE PO PRN ×2 (22:06)
[2023-03-04] MEDS: CEPHALEXIN MONOHYDRATE 250 MG CAPSULE PO SCH ×3 (06:00→17:16)
[2023-03-04] MEDS: BUDESONIDE RESPULE INH 0.5 MG/2 ML AMPUL.NEB NEB SCH ×2 (07:14→19:30)
[2023-03-04 08:00] VITALS: BP 101/70; TEMP 97.8; O2SAT 98
[2023-03-04] MEDS: LEVOTHYROXINE SODIUM 25 MCG TABLET PO SCH (08:28)
[2023-03-04] MEDS: METFORMIN 500 MG TABLET PO SCH ×2 (08:28→16:18)
[2023-03-04] MEDS: DIVALPROEX SODIUM 500 MG TABLET.DR PO SCH ×2 (08:28→16:18)
[2023-03-04] MEDS: PANTOPRAZOLE 40 MG TABLET.DR PO SCH (08:28)
[2023-03-04] MEDS: CLOZAPINE 25 MG TABLET PO SCH (08:32)
[2023-03-04] MEDS: DORZOLAMIDE OPTH 2% 10 ML BOTTLE EACHEYE SCH ×2 (08:34→16:19)
[2023-03-04] MEDS: CHOLESTYRAMINE/ASPARTAME 4 G/PKT PACKET PO SCH (09:00)
[2023-03-04] MEDS ORDERED: SERTRALINE HCL 50 MG TABLET PO SCH (09:00)
[2023-03-04 16:00] VITALS: BP 106/64; TEMP 97.9; O2SAT 99
[2023-03-04 22:00] VITALS: BP 122/65; TEMP 97.8
[2023-03-04] MEDS: LATANOPROST EYE DROP 0.005% 2.5 ML BOTTLE EACHEYE SCH (22:11)
[2023-03-04] MEDS: GABAPENTIN 300 MG CAPSULE PO SCH (22:11)
[2023-03-04] MEDS: ATORVASTATIN 10 MG TABLET PO SCH (22:11)
[2023-03-04] MEDS: CLOZAPINE 100 MG TABLET PO SCH (22:11)
[2023-03-05] MEDS: CEPHALEXIN MONOHYDRATE 250 MG CAPSULE PO SCH ×5 (05:21→18:00)
[2023-03-05] MEDS: BUDESONIDE RESPULE INH 0.5 MG/2 ML AMPUL.NEB NEB SCH ×2 (07:30→19:30)
[2023-03-05 08:00] VITALS: BP 112/70; TEMP 97.9; O2SAT 97
[2023-03-05] MEDS: LEVOTHYROXINE SODIUM 25 MCG TABLET PO SCH (08:21)
[2023-03-05] MEDS: PANTOPRAZOLE 40 MG TABLET.DR PO SCH (08:21)
[2023-03-05] MEDS: DIVALPROEX SODIUM 500 MG TABLET.DR PO SCH ×2 (08:21→17:32)
[2023-03-05] MEDS: METFORMIN 500 MG TABLET PO SCH ×2 (08:22→17:31)
[2023-03-05] MEDS: CHOLESTYRAMINE/ASPARTAME 4 G/PKT PACKET PO SCH (08:22)
[2023-03-05] MEDS: CLOZAPINE 25 MG TABLET PO SCH (08:22)
[2023-03-05] MEDS: DORZOLAMIDE OPTH 2% 10 ML BOTTLE EACHEYE SCH ×2 (10:08→17:32)
[2023-03-05] MEDS: clonazePAM 0.5 MG TABLET PO PRN (14:56)
[2023-03-05 16:00] VITALS: BP 107/78; TEMP 98.2; O2SAT 100
[2023-03-05 21:13] VITALS: BP 119/77; TEMP 97.6; O2SAT 98
[2023-03-05] MEDS: GABAPENTIN 300 MG CAPSULE PO SCH (21:19)
[2023-03-05] MEDS: CLOZAPINE 100 MG TABLET PO SCH (21:19)
[2023-03-05] MEDS: ATORVASTATIN 10 MG TABLET PO SCH (21:19)
[2023-03-05] MEDS: LATANOPROST EYE DROP 0.005% 2.5 ML BOTTLE EACHEYE SCH (21:19)
[2023-03-06] MEDS: CEPHALEXIN MONOHYDRATE 250 MG CAPSULE PO SCH ×5 (05:58→17:34)
[2023-03-06] MEDS: BUDESONIDE RESPULE INH 0.5 MG/2 ML AMPUL.NEB NEB SCH ×2 (07:30→20:23)
[2023-03-06] MEDS: PANTOPRAZOLE 40 MG TABLET.DR PO SCH (07:58)
[2023-03-06] MEDS: LEVOTHYROXINE SODIUM 25 MCG TABLET PO SCH (07:58)
[2023-03-06 08:00] VITALS: BP 118/68; TEMP 98.1; O2SAT 99
[2023-03-06] MEDS: DIVALPROEX SODIUM 500 MG TABLET.DR PO SCH ×2 (08:13→17:28)
[2023-03-06] MEDS: CLOZAPINE 25 MG TABLET PO SCH (08:13)
[2023-03-06] MEDS: METFORMIN 500 MG TABLET PO SCH ×2 (08:13→17:28)
[2023-03-06] MEDS: CHOLESTYRAMINE/ASPARTAME 4 G/PKT PACKET PO SCH ×2 (08:15→12:29)
[2023-03-06] MEDS: DORZOLAMIDE OPTH 2% 10 ML BOTTLE EACHEYE SCH ×2 (08:15→17:28)
[2023-03-06 16:00] VITALS: BP 145/95; TEMP 97.7; O2SAT 100
[2023-03-06] MEDS: clonazePAM 0.5 MG TABLET PO PRN (17:24)
[2023-03-06 20:18] VITALS: O2SAT 99
[2023-03-06 20:28] VITALS: BP 110/78; TEMP 98.1; O2SAT 97
[2023-03-06] MEDS: ATORVASTATIN 10 MG TABLET PO SCH (21:02)
[2023-03-06] MEDS: CLOZAPINE 100 MG TABLET PO SCH (21:02)
[2023-03-06] MEDS: LATANOPROST EYE DROP 0.005% 2.5 ML BOTTLE EACHEYE SCH (21:02)
[2023-03-06] MEDS: GABAPENTIN 300 MG CAPSULE PO SCH (21:02)
[2023-03-07] MEDS: clonazePAM 0.5 MG TABLET PO PRN ×2 (00:30→17:41)
[2023-03-07] MEDS: TEMAZEPAM 7.5 MG CAPSULE PO PRN ×2 (01:45→21:41)
[2023-03-07] MEDS: CEPHALEXIN MONOHYDRATE 250 MG CAPSULE PO SCH ×4 (05:58→17:08)
[2023-03-07] MEDS: BUDESONIDE RESPULE INH 0.5 MG/2 ML AMPUL.NEB NEB SCH ×2 (07:30→19:51)
[2023-03-07] MEDS: PANTOPRAZOLE 40 MG TABLET.DR PO SCH (07:40)
[2023-03-07] MEDS: CLOZAPINE 25 MG TABLET PO SCH (07:40)
[2023-03-07] MEDS: LEVOTHYROXINE SODIUM 25 MCG TABLET PO SCH (07:40)
[2023-03-07 08:00] VITALS: BP 120/65; TEMP 98.1; O2SAT 96
[2023-03-07] MEDS: METFORMIN 500 MG TABLET PO SCH ×2 (08:11→17:08)
[2023-03-07] MEDS: DIVALPROEX SODIUM 500 MG TABLET.DR PO SCH ×2 (08:11→17:08)
[2023-03-07] MEDS: CHOLESTYRAMINE/ASPARTAME 4 G/PKT PACKET PO SCH (08:11)
[2023-03-07] MEDS: DORZOLAMIDE OPTH 2% 10 ML BOTTLE EACHEYE SCH ×2 (08:13→17:09)
[2023-03-07 16:00] VITALS: BP 99/65; TEMP 97.8; O2SAT 95
[2023-03-07 19:52] VITALS: O2SAT 99
[2023-03-07 20:00] VITALS: BP 133/82; TEMP 98.6; O2SAT 98
[2023-03-07 20:02] VITALS: O2SAT 99
[2023-03-07] MEDS: CLOZAPINE 100 MG TABLET PO SCH (21:24)
[2023-03-07] MEDS: ATORVASTATIN 10 MG TABLET PO SCH (21:25)
[2023-03-07] MEDS: GABAPENTIN 300 MG CAPSULE PO SCH (21:25)
[2023-03-07] MEDS: LATANOPROST EYE DROP 0.005% 2.5 ML BOTTLE EACHEYE SCH (21:26)
[2023-03-08 01:54] LABS: APPEARANCE,URINE CLEAR (CLEAR); BILIRUBIN,URINE NEGATIVE (NEGATIVE); BLOOD, URINE NEGATIVE Ery/uL (NEGATIVE); COLOR,URINE YELLOW (YELLOW); KETONES,URINE 1+ mg/dL (NEGATIVE); LEUKOCYTE ESTERASE ,URINE 1+ (NEGATIVE); NITRITE, URINE NEGATIVE (NEGATIVE); PH,URINE 5.5 (5.0-8.0); PROTEIN,URINE NEGATIVE (NEGATIVE); UGLUCOSE NEGATIVE (NEGATIVE); UROBILINOGEN,URINE 0.2 EU/dL (0.2)
[2023-03-08 01:55] LABS: ADD URINE CULTURE YES; BACTERIA,URINE Few /HPF (None Seen); RBC,URINE 0-2 /HPF (0-2); SQUAMOUS EPITHELIAL CELL,UR Rare /HPF (None Seen)
[2023-03-08 07:28] LABS: BASOPHILS % (AUTO) 0.5 % (0.0-2.0); EOSINOPHILS # (AUTO) 0.3 K/uL (0.0-0.7); EOSINOPHILS % (AUTO) 3.3 % (0.0-6.0); HEMATOCRIT 36 % (33-45); HEMOGLOBIN 11.6 g/dL (11.5-14.8); LYMPHOCYTES # (AUTO) 2.5 K/uL (0.8-4.8); MEAN CORPUSCULAR HEMOGLOBIN 27 PG (26.0-33.0); MEAN CORPUSCULAR HGB CONC 32 g/dl (31.0-36.0); MEAN CORPUSCULAR VOLUME 83 fL (82-100); MONOCYTES # (AUTO) 0.7 K/uL (0.1-1.30); MONOCYTES % (AUTO) 8.4 % (2.0-12.0); NEUTROPHILS # (AUTO) 4.6 K/uL (1.8-8.9); NEUTROPHILS % (AUTO) 56.8 % (43.0-81.0); PLATELET COUNT (AUTO) 304 K/uL (150-450); RED BLOOD CELL COUNT(AUTO) 4.35 MIL/uL (4.0-5.2); RED CELL DISTRIBUTION WIDTH 15.6 % (11.5-15.0); WHITE BLOOD COUNT (AUTO) 8.2 K/uL (4.3-11.0)
[2023-03-08] MEDS: CLOZAPINE 25 MG TABLET PO SCH (07:29)
[2023-03-08] MEDS: LEVOTHYROXINE SODIUM 25 MCG TABLET PO SCH (07:30)
[2023-03-08] MEDS: PANTOPRAZOLE 40 MG TABLET.DR PO SCH (07:30)
[2023-03-08] MEDS: BUDESONIDE RESPULE INH 0.5 MG/2 ML AMPUL.NEB NEB SCH ×2 (07:55→20:33)
[2023-03-08 08:00] VITALS: BP 106/53; TEMP 98.2; O2SAT 98
[2023-03-08 08:03] LABS: CALCIUM, SERUM 8.9 mg/dL (8.5-10.1)
[2023-03-08] MEDS: DORZOLAMIDE OPTH 2% 10 ML BOTTLE EACHEYE SCH ×2 (08:32→16:09)
[2023-03-08] MEDS: CHOLESTYRAMINE/ASPARTAME 4 G/PKT PACKET PO SCH (08:32)
[2023-03-08] MEDS: DIVALPROEX SODIUM 500 MG TABLET.DR PO SCH ×2 (08:32→16:08)
[2023-03-08] MEDS: METFORMIN 500 MG TABLET PO SCH ×2 (08:32→16:08)
[2023-03-08] MEDS: clonazePAM 0.5 MG TABLET PO PRN (14:34)
[2023-03-08 16:00] VITALS: BP_SYST 123; BP_SYST 133; BP_DIAS 86; BP_DIAS 93; TEMP 97.9; TEMP 98.1; O2SAT 100; O2SAT 99
[2023-03-08] MEDS: ACETAMINOPHEN 325 MG TABLET PO PRN (18:51)
[2023-03-08 20:06] VITALS: BP 129/85; TEMP 97.7; O2SAT 99
[2023-03-08 20:34] VITALS: O2SAT 98
[2023-03-08 20:43] VITALS: O2SAT 100
[2023-03-08] MEDS: LATANOPROST EYE DROP 0.005% 2.5 ML BOTTLE EACHEYE SCH (21:11)
[2023-03-08] MEDS: CLOZAPINE 100 MG TABLET PO SCH (21:11)
[2023-03-08] MEDS: GABAPENTIN 300 MG CAPSULE PO SCH (21:12)
[2023-03-08] MEDS: ATORVASTATIN 10 MG TABLET PO SCH (21:12)
[2023-03-08] MEDS: TEMAZEPAM 7.5 MG CAPSULE PO PRN (21:27)
[2023-03-09] MEDS: BUDESONIDE RESPULE INH 0.5 MG/2 ML AMPUL.NEB NEB SCH ×2 (07:30→19:30)
[2023-03-09 08:00] VITALS: BP_SYST 106; BP_DIAS 63; BP_DIAS 96; TEMP 97.4; O2SAT 98
[2023-03-09] MEDS: METFORMIN 500 MG TABLET PO SCH ×2 (08:17→16:45)
[2023-03-09] MEDS: PANTOPRAZOLE 40 MG TABLET.DR PO SCH (08:17)
[2023-03-09] MEDS: CLOZAPINE 25 MG TABLET PO SCH (08:17)
[2023-03-09] MEDS: LEVOTHYROXINE SODIUM 25 MCG TABLET PO SCH (08:17)
[2023-03-09] MEDS: CHOLESTYRAMINE/ASPARTAME 4 G/PKT PACKET PO SCH (08:17)
[2023-03-09] MEDS: DIVALPROEX SODIUM 500 MG TABLET.DR PO SCH ×2 (08:18→16:45)
[2023-03-09] MEDS: DORZOLAMIDE OPTH 2% 10 ML BOTTLE EACHEYE SCH ×2 (08:19→16:52)
[2023-03-09] MEDS: clonazePAM 0.5 MG TABLET PO PRN (13:47)
[2023-03-09 16:00] VITALS: BP 105/76; TEMP 98; O2SAT 98
[2023-03-09 20:00] VITALS: BP 113/76; TEMP 98.1; O2SAT 99
[2023-03-09] MEDS: CLOZAPINE 100 MG TABLET PO SCH (21:22)
[2023-03-09] MEDS: LATANOPROST EYE DROP 0.005% 2.5 ML BOTTLE EACHEYE SCH (21:22)
[2023-03-09] MEDS: ATORVASTATIN 10 MG TABLET PO SCH (21:23)
[2023-03-09] MEDS: GABAPENTIN 300 MG CAPSULE PO SCH (21:23)
[2023-03-09] MEDS: TEMAZEPAM 7.5 MG CAPSULE PO PRN (21:59)
[2023-03-10] MEDS: BUDESONIDE RESPULE INH 0.5 MG/2 ML AMPUL.NEB NEB SCH ×2 (07:30→19:30)
[2023-03-10 08:00] VITALS: BP 104/68; TEMP 97.9; O2SAT 100
[2023-03-10] MEDS: PANTOPRAZOLE 40 MG TABLET.DR PO SCH (08:27)
[2023-03-10] MEDS: LEVOTHYROXINE SODIUM 25 MCG TABLET PO SCH (08:27)
[2023-03-10] MEDS: DIVALPROEX SODIUM 500 MG TABLET.DR PO SCH ×2 (08:47→16:21)
[2023-03-10] MEDS: METFORMIN 500 MG TABLET PO SCH ×2 (08:47→16:20)
[2023-03-10] MEDS: CHOLESTYRAMINE/ASPARTAME 4 G/PKT PACKET PO SCH (08:47)
[2023-03-10] MEDS: CLOZAPINE 25 MG TABLET PO SCH (08:47)
[2023-03-10] MEDS: DORZOLAMIDE OPTH 2% 10 ML BOTTLE EACHEYE SCH ×2 (08:47→16:19)
[2023-03-10 16:00] VITALS: BP 109/70; TEMP 98; O2SAT 100
[2023-03-10 20:00] VITALS: BP 106/80; TEMP 97.8; O2SAT 98
[2023-03-10] MEDS: CLOZAPINE 100 MG TABLET PO SCH (21:20)
[2023-03-10] MEDS: LATANOPROST EYE DROP 0.005% 2.5 ML BOTTLE EACHEYE SCH (21:20)
[2023-03-10] MEDS: GABAPENTIN 300 MG CAPSULE PO SCH (21:21)
[2023-03-10] MEDS: ATORVASTATIN 10 MG TABLET PO SCH (21:21)
[2023-03-10] MEDS: TEMAZEPAM 7.5 MG CAPSULE PO PRN (22:08)
[2023-03-11] MEDS: BUDESONIDE RESPULE INH 0.5 MG/2 ML AMPUL.NEB NEB SCH ×2 (07:30→20:38)
[2023-03-11 08:00] VITALS: BP 115/73; TEMP 97.9; O2SAT 97
[2023-03-11] MEDS: DORZOLAMIDE OPTH 2% 10 ML BOTTLE EACHEYE SCH ×2 (08:45→16:40)
[2023-03-11] MEDS: LEVOTHYROXINE SODIUM 25 MCG TABLET PO SCH (08:47)
[2023-03-11] MEDS: PANTOPRAZOLE 40 MG TABLET.DR PO SCH (08:47)
[2023-03-11] MEDS: CHOLESTYRAMINE/ASPARTAME 4 G/PKT PACKET PO SCH (08:47)
[2023-03-11] MEDS: DIVALPROEX SODIUM 500 MG TABLET.DR PO SCH ×2 (08:48→16:39)
[2023-03-11] MEDS: METFORMIN 500 MG TABLET PO SCH ×2 (08:48→16:39)
[2023-03-11] MEDS: CLOZAPINE 25 MG TABLET PO SCH (08:48)
[2023-03-11] MEDS: clonazePAM 0.5 MG TABLET PO PRN (16:39)
[2023-03-11 17:08] VITALS: BP 107/71; TEMP 97.3; O2SAT 97
[2023-03-11 20:00] VITALS: BP 132/74; TEMP 97.5; O2SAT 97
[2023-03-11 20:05] VITALS: O2SAT 100
[2023-03-11 20:15] VITALS: O2SAT 100
[2023-03-11] MEDS: LATANOPROST EYE DROP 0.005% 2.5 ML BOTTLE EACHEYE SCH (21:57)
[2023-03-11] MEDS: CLOZAPINE 100 MG TABLET PO SCH (21:58)
[2023-03-11] MEDS: ATORVASTATIN 10 MG TABLET PO SCH (21:58)
[2023-03-11] MEDS: GABAPENTIN 300 MG CAPSULE PO SCH (21:58)
[2023-03-11] MEDS: TEMAZEPAM 7.5 MG CAPSULE PO PRN (22:10)
[2023-03-12] MEDS: BUDESONIDE RESPULE INH 0.5 MG/2 ML AMPUL.NEB NEB SCH ×2 (07:30→20:17)
[2023-03-12 08:00] VITALS: BP 98/63; TEMP 98.1; O2SAT 100
[2023-03-12] MEDS: METFORMIN 500 MG TABLET PO SCH ×2 (08:17→16:48)
[2023-03-12] MEDS: CHOLESTYRAMINE/ASPARTAME 4 G/PKT PACKET PO SCH (08:17)
[2023-03-12] MEDS: PANTOPRAZOLE 40 MG TABLET.DR PO SCH (08:17)
[2023-03-12] MEDS: CLOZAPINE 25 MG TABLET PO SCH (08:17)
[2023-03-12] MEDS: LEVOTHYROXINE SODIUM 25 MCG TABLET PO SCH (08:17)
[2023-03-12] MEDS: DIVALPROEX SODIUM 500 MG TABLET.DR PO SCH ×2 (08:17→16:48)
[2023-03-12] MEDS: DORZOLAMIDE OPTH 2% 10 ML BOTTLE EACHEYE SCH ×2 (08:18→16:49)
[2023-03-12 16:00] VITALS: BP 128/91; TEMP 98; O2SAT 98
[2023-03-12] MEDS: clonazePAM 0.5 MG TABLET PO PRN (16:49)
[2023-03-12 20:17] VITALS: O2SAT 98
[2023-03-12 20:32] VITALS: O2SAT 100
[2023-03-12 20:55] VITALS: BP 115/85; TEMP 97.6; O2SAT 98
[2023-03-12] MEDS: ATORVASTATIN 10 MG TABLET PO SCH (21:40)
[2023-03-12] MEDS: GABAPENTIN 300 MG CAPSULE PO SCH (21:41)
[2023-03-12] MEDS: CLOZAPINE 100 MG TABLET PO SCH (21:41)
[2023-03-12] MEDS: LATANOPROST EYE DROP 0.005% 2.5 ML BOTTLE EACHEYE SCH (21:44)
[2023-03-12] MEDS: TEMAZEPAM 7.5 MG CAPSULE PO PRN (22:07)
[2023-03-13 07:06] VITALS: O2SAT 96
[2023-03-13] MEDS: BUDESONIDE RESPULE INH 0.5 MG/2 ML AMPUL.NEB NEB SCH ×2 (07:06→19:30)
[2023-03-13 08:00] VITALS: BP 107/74; TEMP 97.9; O2SAT 98
[2023-03-13] MEDS: CLOZAPINE 25 MG TABLET PO SCH (08:04)
[2023-03-13] MEDS: LEVOTHYROXINE SODIUM 25 MCG TABLET PO SCH (08:04)
[2023-03-13] MEDS: PANTOPRAZOLE 40 MG TABLET.DR PO SCH (08:04)
[2023-03-13] MEDS: DIVALPROEX SODIUM 500 MG TABLET.DR PO SCH ×2 (08:12→16:44)
[2023-03-13] MEDS: CHOLESTYRAMINE/ASPARTAME 4 G/PKT PACKET PO SCH (08:12)
[2023-03-13] MEDS: METFORMIN 500 MG TABLET PO SCH ×2 (08:12→16:44)
[2023-03-13] MEDS: DORZOLAMIDE OPTH 2% 10 ML BOTTLE EACHEYE SCH ×2 (08:13→16:44)
[2023-03-13] MEDS: clonazePAM 0.5 MG TABLET PO PRN (15:19)
[2023-03-13 16:00] VITALS: BP 103/65; TEMP 98.1; O2SAT 97
[2023-03-13 20:35] VITALS: BP 125/93; TEMP 97.8; O2SAT 99
[2023-03-13] MEDS: CLOZAPINE 100 MG TABLET PO SCH (21:39)
[2023-03-13] MEDS: GABAPENTIN 300 MG CAPSULE PO SCH (21:39)
[2023-03-13] MEDS: ATORVASTATIN 10 MG TABLET PO SCH (21:39)
[2023-03-13] MEDS: LATANOPROST EYE DROP 0.005% 2.5 ML BOTTLE EACHEYE SCH (21:40)
[2023-03-13] MEDS: TEMAZEPAM 7.5 MG CAPSULE PO PRN (21:58)
[2023-03-14] MEDS: BUDESONIDE RESPULE INH 0.5 MG/2 ML AMPUL.NEB NEB SCH (07:30)
[2023-03-14] MEDS: CLOZAPINE 25 MG TABLET PO SCH (08:27)
[2023-03-14] MEDS: DIVALPROEX SODIUM 500 MG TABLET.DR PO SCH (08:27)
[2023-03-14] MEDS: METFORMIN 500 MG TABLET PO SCH (08:27)
[2023-03-14] MEDS: PANTOPRAZOLE 40 MG TABLET.DR PO SCH (08:27)
[2023-03-14] MEDS: DORZOLAMIDE OPTH 2% 10 ML BOTTLE EACHEYE SCH (08:28)
[2023-03-14] MEDS: LEVOTHYROXINE SODIUM 25 MCG TABLET PO SCH (08:28)
[2023-03-14 09:29] VITALS: BP 114/87; TEMP 98.7; O2SAT 98
[2023-03-14] MEDS: CHOLESTYRAMINE/ASPARTAME 4 G/PKT PACKET PO SCH (10:41)
== END 2023-03-14 14:10 | DRG 885 ==
LOC: ER 11:16 → GPS 13:09
PROVIDERS: ADMIT Psychiatry & Neurology Psychosomatic Medicine; ATTEND Internal Medicine
DX: F25.0 Schizoaffective disorder, bipolar type (principal); R45.851 Suicidal ideations; Z68.41 Body mass index [BMI] 40.0-44.9, adult; N39.0 Urinary tract infection, site not specified; G93.40 Encephalopathy, unspecified; F41.9 Anxiety disorder, unspecified; E78.5 Hyperlipidemia, unspecified; G31.84 Mild cognitive impairment of uncertain or unknown etiology; F43.10 Post-traumatic stress disorder, unspecified; X58.XXXA Exposure to other specified factors, initial encounter; Y92.9 Unspecified place or not applicable; Z20.822 Contact with and (suspected) exposure to COVID-19; E11.40 Type 2 diabetes mellitus with diabetic neuropathy, unspecified; I10 Essential (primary) hypertension; E03.9 Hypothyroidism, unspecified; E05.90 Thyrotoxicosis, unspecified without thyrotoxic crisis or storm; Z79.52 Long term (current) use of systemic steroids; J45.909 Unspecified asthma, uncomplicated; Z90.710 Acquired absence of both cervix and uterus; Z90.49 Acquired absence of other specified parts of digestive tract; Z98.890 Other specified postprocedural states; Z91.013 Allergy to seafood; Z88.8 Allergy status to other drugs, medicaments and biological substances; Z91.048 Other nonmedicinal substance allergy status; Z79.4 Long term (current) use of insulin; Z79.899 Other long term (current) drug therapy; Z79.51 Long term (current) use of inhaled steroids; Z79.84 Long term (current) use of oral hypoglycemic drugs; E66.01 Morbid (severe) obesity due to excess calories; Z80.0 Family history of malignant neoplasm of digestive organs; Z83.3 Family history of diabetes mellitus; R19.7 Diarrhea, unspecified; J44.9 Chronic obstructive pulmonary disease, unspecified; H40.9 Unspecified glaucoma; I48.91 Unspecified atrial fibrillation; Z91.52 Personal history of nonsuicidal self-harm; G47.00 Insomnia, unspecified; I95.9 Hypotension, unspecified; F32.A Depression, unspecified
CPT/HCPCS: 36415; 80048-TC; 80053-TC; 80061-TC; 80076-TC; 80164-TC; 81001; 82565-TC; 82962-TC; 84443-TC; 85025-TC; 87081-TC; 87086-TC; G0480; J1815; Q0162

== ENCOUNTER 2024-04-16 16:02 | Emergency (ER) | payer MEDICARE, OTHER ==
[~2024-04-16] VITALS: Ht 160 cm; Wt 110.2 kg
[~2024-04-16 16:02] MED LIST changes: +ALBU18HF2 IH; +ATOR10TA PO; -ATOR20TA PO; +CHOL4PAC9 PO; -CLOZ25TA4 PO; -DIVA500T54 PO; +FOLI1TAB24 PO; -FOLI1TAB26 PO; +INSU100V7 SQ; +LATA2.5D15 EACHEYE; +LEVO25TA7 PO; -LEVO75TA7 PO; +LIDO30AD10 TP; -LORA-259 PO; +METO25TA20 PO; +METO25TA3 PO; -METO25TA6 PO; +NON-FORMULARY PO; +OLOP2.5D12 EACHEYE; +ONDA4TAB11 SL; +PANT40TA2 PO; -PANT40TA49 PO; +PROP20TA7 PO; +SEMA0.25 SQ; -SERT100T12 PO
[2024-04-16 16:12] VITALS: TEMP 98
[2024-04-16] MEDS ORDERED: CLOZ200T PO (16:50)
[2024-04-16] MEDS ORDERED: ACET-3102 PO (16:50)
[2024-04-16] MEDS ORDERED: DIVA500T2 PO (16:50)
[2024-04-16] MEDS ORDERED: TEMA15CA PO (16:50)
[2024-04-16] MEDS ORDERED: TRAZ150T75 PO (16:50)
[2024-04-16] MEDS ORDERED: ASPI-1420 PO (16:50)
[2024-04-16] MEDS ORDERED: MOUNJARO SQ (16:50)
[2024-04-16] MEDS ORDERED: LORA-258 PO (16:50)
[2024-04-16 18:42] VITALS: BP 139/91; O2SAT 98
== END 2024-04-16 18:45 ==
LOC: ER 16:05
DX: I10 Essential (primary) hypertension (principal); E11.9 Type 2 diabetes mellitus without complications; E03.9 Hypothyroidism, unspecified; Z90.49 Acquired absence of other specified parts of digestive tract; Z90.710 Acquired absence of both cervix and uterus; Z79.84 Long term (current) use of oral hypoglycemic drugs; Z79.82 Long term (current) use of aspirin; Z79.51 Long term (current) use of inhaled steroids; Z79.4 Long term (current) use of insulin; Z88.8 Allergy status to other drugs, medicaments and biological substances; Z91.041 Radiographic dye allergy status